=== PATIENT | female | born 1995 | race Caucasian/White ===

== ENCOUNTER 2016-10-28 15:32 | Emergency (ER) | payer OTHER ==
[2016-10-28 15:48] VITALS: BP 124/72
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
[2016-10-28 17:43] LABS: Hematocrit 43 % (35-47); Hemoglobin 14.4 g/dl (12.0-16.0); Mean Corpuscular HGB Conc 33 g/dl (31-36); Mean Corpuscular Hemoglobin 29 pg (27-31); Mean Corpuscular Volume 88 fL (80-97); Mean Platelet Volume 8 um3 (7.4-10.4); Red Blood Count 4.91 10^6/ul (4.0-5.4); Red Cell Distribution Width 13 % (10.5-15); White Blood Count 13.1 10^3/ul (3.5-10.8)
[2016-10-28 18:03] LABS: ALT 10 U/L (7-52); AST 14 U/L (13-39); Albumin 4.7 g/dL (3.2-5.2); Alkaline Phosphatase 45 U/L (34-104); Anion Gap 6 mmol/L (2-11); BUN/Creatinine Ratio 20.8 (8-20); Blood Urea Nitrogen 15 mg/dL (6-24); CO2 Carbon Dioxide 26 mmol/L (22-32); Calcium 9.7 mg/dL (8.6-10.3); Chloride 104 mmol/L (101-111); EGFR African American 132.8 (>60); EGFR Non-African American 103.3 (>60); Globulin 3.1 g/dL (2-4); Glucose 89 mg/dL (70-100); Potassium 3.7 mmol/L (3.5-5.0); Sodium 136 mmol/L (133-145); Total Protein 7.8 g/dL (6.4-8.9)
[2016-10-28] MEDS ORDERED: Iohexol 300* (CONTRAST) 10 ML SDV IV ONE (18:20)
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
== END 2016-10-28 19:27 | disposition home or self-care (01) ==
LOC: ED 15:32
DX: S00.93XA Contusion of unspecified part of head, initial encounter (principal); R51 Headache; M54.2 Cervicalgia; M25.551 Pain in right hip; S80.211A Abrasion, right knee, initial encounter; S70.211A Abrasion, right hip, initial encounter; V47.0XXA Car driver injured in collision with fixed or stationary object in nontraffic accident, initial encounter; Y93.9 Activity, unspecified; Y92.9 Unspecified place or not applicable
CPT/HCPCS: 36415; 70450; 71260; 72125; 74177; 80053; 84702; 85025; 85610; 99282; Q9967

== ENCOUNTER 2017-03-13 22:59 | Emergency (ER) | payer BC ==
[2017-03-13] MEDS ORDERED: Ondansetron ODT TAB* 4 MG PO ONE (23:50)
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
[2017-03-14 00:05] VITALS: BP 116/62
== END 2017-03-14 00:05 | disposition home or self-care (01) ==
LOC: ED 22:59
DX: S09.90XA Unspecified injury of head, initial encounter (principal); R51 Headache; W22.8XXA Striking against or struck by other objects, initial encounter; Y93.64 Activity, baseball; Y92.9 Unspecified place or not applicable; J45.909 Unspecified asthma, uncomplicated; Z88.2 Allergy status to sulfonamides
CPT/HCPCS: 99281; A9270-GY

== ENCOUNTER 2017-04-27 08:26 | Emergency (ER) | payer BC ==
[2017-04-27 10:45] LABS: Hematocrit 43 % (35-47); Hemoglobin 14.1 g/dl (12.0-16.0); Mean Corpuscular HGB Conc 33 g/dl (31-36); Mean Corpuscular Hemoglobin 30 pg (27-31); Mean Corpuscular Volume 90 fL (80-97); Mean Platelet Volume 8 um3 (7.4-10.4); Red Blood Count 4.76 10^6/ul (4.0-5.4); Red Cell Distribution Width 13 % (10.5-15); White Blood Count 8.9 10^3/ul (3.5-10.8)
[2017-04-27 10:54] LABS: Urine Bacteria Absent (Absent); Urine Bilirubin Negative (Negative); Urine Glucose Negative (Negative); Urine Nitrite Negative (Negative)
[2017-04-27 10:55] LABS: UR Preg Internal Control QC Line Present
[2017-04-27 10:57] LABS: BUN/Creatinine Ratio 16.2 (8-20); Calcium 9.4 mg/dL (8.6-10.3); EGFR African American 140.5 (>60); EGFR Non-African American 109.2 (>60); Potassium 3.9 mmol/L (3.5-5.0)
[2017-04-27 11:26] VITALS: BP 112/52
--- NOTE | 2017-04-30 14:26 | ED ---
Carol Villa Rebecca, scribed for Vitor Watkins MD on 04/27/17 at 1001 . Complex/Multi-Sys Presentation - HPI Summary HPI Summary: Pt is a 21 y/o F who presents to ED s/p 1 incident of near syncope last night with no complaints at this time. Pt reports last night she was stretching and noticed a "lump" on the R flank with no pain. After pushing on it last night she suddenly experienced visual and hearing changes, dizziness, lightheadedness characterized as near syncopal and diaphoresis. Visual and hearing changes resolved after 5-7 minutes with the lightheadedness, dizziness and diaphoresis resolved after 1 hour. Additionally notes tingling in the R hand when the lump is palpated. Sx aggravated by nothing, alleviated by spontaneous resolution. Denies abd pain, N/V. Reports a Hx of constipation and that her last BM was this morning and small. Confirms normal eating and drinking. No PMHx anemia. FHx anemia. LNMP 2 days ago. - History Of Current Complaint Chief Complaint: EDGeneral Time Seen by Provider: 04/27/17 09:44 Hx Obtained From: Patient Onset/Duration: Lasting Hours - 1 hour, Resolved Timing: Constant Severity Currently: None Aggravating Factor(s): Nothing Alleviating Factor(s): Spontaneous resolution Associated Signs And Symptoms: Positive: Dizziness. Negative: Nausea, Vomiting , Abdominal Pain - Allergies/Home Medications Allergies/Adverse Reactions: Allergies Allergy/AdvReac Type Severity Reaction Status Date / Time Sulfa Antibiotics Allergy Rash Verified 03/13/17 23:07 PMH/Surg Hx/FS Hx/Imm Hx Endocrine/Hematology History: Denies: Hx Diabetes Cardiovascular History: Denies: Hx Hypertension, Hx Pacemaker/ICD Respiratory History: Reports: Hx Asthma - No issues in awhile Sensory History: Denies: Hx Hearing Aid Psychiatric History: Denies: Hx Panic Disorder - Surgical History Surgery Procedure, Year, and Place: t&a, Appendectomy 12/30/13 - Immunization History Date of Tetanus Vaccine: Up to Date Infectious Disease History: No Infectious Disease History: Denies: History Other Infectious Disease, Traveled Outside the [place] in Last 30 Days - Family History Known Family History: Positive: Other - anemia Negative: Cardiac Disease - Social History Alcohol Use: None Substance Use Type: Reports: None Substance Use Comment - Amount & Last Used: 2 wks ago Smoking Status (MU): Never Smoked Tobacco Review of Systems Positive: Skin Diaphoresis - resolved. Negative: Fever, Chills Positive: Other - Visual changes - resolved. Negative: Erythema Positive: Other - Hearing changes - resolved. Negative: Sore Throat Negative: Chest Pain Negative: Shortness Of Breath, Cough Negative: Abdominal Pain, Vomiting, Nausea Negative: dysuria, hematuria Positive: Other - "lump" on the R flank Negative: Rash Neurological: Other - Dizziness and lightheadedness - resolved; R hand tingling when the lump is palpated Positive: Syncope - near syncopal - resolved All Other Systems Reviewed And Are Negative: Yes Physical Exam - Summary Physical Exam Summary: Constitutional: Well-developed, Well-nourished, Alert. (-) Distressed Skin: Warm, Dry HENT: Normocephalic; Atraumatic Eyes: Conjunctiva normal Neck: Musculoskeletal ROM normal neck. (-) JVD, (-) Stridor, (-) Tracheal deviation Cardio: Rhythm regular, rate normal, Heart sounds normal; Intact distal pulses; The pedal pulses are 2+ and symmetric. Radial pulses are 2+ and symmetric. (-) Murmur Pulmonary/Chest wall: Effort normal. (-) Respiratory distress, (-) Wheezes, (-) Rales Abd: Soft, (-) Tenderness, (-) Distension, (-) Guarding, (-) Rebound, (-) Palpable masses Musculoskeletal: (-) Edema, (-) Palpable masses Lymph: (-) Cervical adenopathy Neuro: Alert, Oriented x3 Psych: Mood and affect Normal Triage Information Reviewed: Yes Vital Signs On Initial Exam: Initial Vitals Temp Pulse Resp BP Pulse Ox 98.1 F 81 14 110/59 100 04/27/17 08:29 04/27/17 08:29 04/27/17 08:29 04/27/17 08:29 04/27/17 08:29 Vital Signs Reviewed: Yes Diagnostics - Vital Signs Vital Signs Temp Pulse Resp BP Pulse Ox 04/27/17 08:29 98.1 F 81 14 110/59 100 - Laboratory Result Diagrams: 04/27/17 10:24 04/27/17 10:24 Lab Statement: Any lab studies that have been ordered have been reviewed, and results considered in the medical decision making process. Re-Evaluation - Re-Evaluation First Eval Re-Evaluation Time: 11:17 Change: Unchanged Comment: Continues to be asymptomatic. Discussed D/C plan. Complex Multi-Symp Course/Dx Assessment/Plan: Pt is a 21 y/o F who presents to ED s/p 1 incident of near syncope last night with no complaints at this time. Pt reports last night she was stretching and noticed a "lump" on the R flank with no pain. After pushing on it last night she suddenly experienced visual and hearing changes, dizziness , lightheadedness characterized as near syncopal and diaphoresis. Visual and hearing changes resolved after 5-7 minutes with the lightheadedness, dizziness and diaphoresis resolved after 1 hour. Additionally notes tingling in the R hand when the lump is palpated. Sx alleviated by spontaneous resolution. Denies abd pain, N/V. Reports a Hx of constipation and that her last BM was this morning and small. Confirms normal eating and drinking. No PMHx anemia. FHx anemia. LNMP 2 days ago. UA reveals urine color: yellow, appearance: clear, specific gravity: 1.009, leukocyte esterase: 1+ and negative for blood, protein , bilirubin, ketones and nitrates. Urine negative. She will be D/C to home with Dx of near syncope and a follow up with her PCP. She understands and agrees. Patient medications reviewed this visit. - Diagnoses Differential Diagnoses/HQI/PQRI: Other - Vagal orthostatis hypotension, dehydration, anemia Provider Diagnoses: Near syncope Discharge - Discharge Plan Condition: Stable Disposition: HOME Patient Education Materials: Near Syncope (ED) Referrals: Gracia Gao MD [Primary Care Provider] - (Follow up with your primary care physician in 3-5 days. ) Additional Instructions: Will call with urine culture results if positive. RETURN TO THE EMERGENCY DEPARTMENT FOR CHANGING OR WORSENING SYMPTOMS The documentation as recorded by the Carol valdez Rebecca accurately reflects the service I personally performed and the decisions made by me, Vitor Watkins MD.
== END 2017-04-27 11:24 | disposition home or self-care (01) ==
LOC: ED 08:26
DX: R55 Syncope and collapse (principal); Z88.2 Allergy status to sulfonamides
CPT/HCPCS: 36415; 80048; 81003; 81015; 81025; 85027; 87086; 99281

== ENCOUNTER 2017-07-29 08:53 | Emergency (ER) | payer BC ==
[2017-07-29 09:09] VITALS: BP 114/71
--- NOTE | 2017-07-29 09:20 | UC ---
Throat Pain/Nasal Alexander HPI - HPI Summary HPI Summary: SINUS PAIN AND PRESSURE X 8 DAYS PND, COUGH , NASAL CONGESTION , NO FEVER, NO CHILLS - History of Current Complaint Chief Complaint: UCGeneralIllness Stated Complaint: sinuses Time Seen by Provider: 07/29/17 08:58 Hx Obtained From: Patient Hx Last Menstrual Period: 07/18/17 Onset/Duration: Gradual Onset, Lasting Days - 8, Still Present Severity: Moderate Cough: Nonproductive Associated Signs & Symptoms: Positive: Wheezing, Sinus Discomfort, Nasal Discharge. Negative: Hoarseness, Fever - Allergies/Home Medications Allergies/Adverse Reactions: Allergies Allergy/AdvReac Type Severity Reaction Status Date / Time Sulfa Antibiotics Allergy Rash Verified 07/29/17 09:09 Home Medications: Home Medications [id number] [Nyquil Severe Cold/Flu 5-6.25-10-325 mg/15Ml] 30 ml PO DAILY PRN 07/29/17 [History Confirmed 07/29/17] PMH/Surg Hx/FS Hx/Imm Hx Respiratory History: Asthma - Surgical History Surgical History: Yes Surgery Procedure, Year, and Place: t&a, Appendectomy 12/30/13 - Family History Known Family History: Positive: None, Other - anemia Negative: Cardiac Disease - Social History Alcohol Use: Occasionally Substance Use Type: Marijuana Substance Use Comment - Amount & Last Used: 2 wks ago Smoking Status (MU): Never Smoked Tobacco Household Exposure Type: Cigarettes - Immunization History Most Recent Influenza Vaccination: none Most Recent Tetanus Shot: UTD Most Recent Pneumonia Vaccination: none Vaccination Up to Date: Yes Review of Systems Constitutional: Negative Skin: Negative Eyes: Negative ENT: Nasal Discharge, Sinus Congestion, Sinus Pain/Tenderness Respiratory: Cough Cardiovascular: Negative Gastrointestinal: Negative Is Patient Immunocompromised?: No All Other Systems Reviewed And Are Negative: Yes Physical Exam Triage Information Reviewed: Yes Appearance: Well-Appearing, No Pain Distress, Well-Nourished Vital Signs: Initial Vital Signs Temp 97.9 F 07/29/17 09:03 Pulse 75 07/29/17 09:03 Resp 16 07/29/17 09:03 BP 114/71 07/29/17 09:03 Pulse Ox 100 07/29/17 09:03 Vital Signs Reviewed: Yes Eyes: Positive: Conjunctiva Clear ENT: Positive: Normal ENT inspection, Hearing grossly normal, Pharyngeal erythema, Nasal congestion, Nasal drainage, TMs normal, Sinus tenderness Neck exam: Normal Neck: Positive: Supple, Nontender, No Lymphadenopathy Respiratory: Positive: Chest non-tender, Lungs clear, Normal breath sounds Cardiovascular: Positive: RRR, No Murmur, Pulses Normal, Brisk Capillary Refill Throat Pain/Nasal Course/Dx - Differential Dx/Diagnosis Provider Diagnoses: SINUSITIS Discharge - Discharge Plan Condition: Stable Disposition: HOME Prescriptions: Albuterol HFA INHALER* [Ventolin HFA Inhaler*] 1 - 2 puff INH Q6H PRN #1 mdi PRN Reason: Wheezing Amoxicillin/Clavulanate TAB* [Augmentin TAB 875*] 875 mg PO BID #20 tab Patient Education Materials: Sinusitis (ED) Referrals: Gracia Gao MD [Primary Care Provider] - If Needed
== END 2017-07-29 09:23 | disposition home or self-care (01) ==
LOC: UCCORT 08:53
DX: J32.9 Chronic sinusitis, unspecified (principal); Z88.2 Allergy status to sulfonamides
CPT/HCPCS: 99212; G0463

== ENCOUNTER 2017-09-02 13:53 | Emergency (ER) | payer BC ==
[2017-09-02] MEDS ORDERED: NS 0.9% 1000 ML* 1,000 ML IV ONE (14:40)
[2017-09-02] MEDS ORDERED: Ondansetron INJ* 2 MG/ML VIAL IV ONE (14:40)
[2017-09-02] MEDS ORDERED: Ketorolac INJ* 30 MG/ML 1 ML VIAL IV PUSH ONE (14:41)
[2017-09-02 15:07] LABS: Hematocrit 42 % (35-47); Hemoglobin 14.2 g/dl (12.0-16.0); Mean Corpuscular HGB Conc 34 g/dl (31-36); Mean Corpuscular Hemoglobin 30 pg (27-31); Mean Corpuscular Volume 87 fL (80-97); Mean Platelet Volume 8 um3 (7.4-10.4); Red Blood Count 4.75 10^6/ul (4.0-5.4); Red Cell Distribution Width 13 % (10.5-15); White Blood Count 17.8 10^3/ul (3.5-10.8)
[2017-09-02 15:26] LABS: ALT 8 U/L (7-52); AST 13 U/L (13-39); Albumin 4.7 g/dL (3.2-5.2); Alkaline Phosphatase 48 U/L (34-104); Anion Gap 9 mmol/L (2-11); BUN/Creatinine Ratio 11.3 (8-20); Blood Urea Nitrogen 8 mg/dL (6-24); CO2 Carbon Dioxide 25 mmol/L (22-32); Calcium 9.6 mg/dL (8.6-10.3); Chloride 104 mmol/L (101-111); EGFR African American 133.6 (>60); EGFR Non-African American 103.9 (>60); Globulin 3.1 g/dL (2-4); Glucose 106 mg/dL (70-100); Lipase 24 U/L (11.0-82.0); Potassium 3.5 mmol/L (3.5-5.0); Sodium 138 mmol/L (133-145); Total Protein 7.8 g/dL (6.4-8.9)
[2017-09-02 17:21] LABS: Urine Bacteria Absent (Absent); Urine Bilirubin Negative (Negative); Urine Glucose Negative (Negative); Urine Nitrite Negative (Negative)
--- NOTE | 2017-09-02 18:24 | RAD ---
Indication: Right flank pain. CT of the abdomen and pelvis was performed without oral or IV contrast administration. Coronal and sagittal reconstructed images were obtained. The lung bases demonstrate no pleural fluid, nodules or masses. Heart is of normal size without evidence of pericardial effusion. The liver is normal in size. No focal lesions or intrahepatic ductal dilatation. The gallbladder demonstrates no calcified gallstones. No pericholecystic fluid or wall thickening is noted. The spleen demonstrates calcified granuloma. No adrenal masses are noted. There is right hydronephrosis noted. There is a calculus in the proximal right ureter at approximately L2-L3 level measuring approximately 4 mm is noted. The left kidney shows no hydronephrosis. Nonobstructing calculi are noted in the lower pole of both kidneys. No retroperitoneal lymphadenopathy is noted. No dilated loops of bowel are noted. CT of the pelvis demonstrates intrauterine device in place. There is a right ovarian cyst with a calcification measuring up to 4.2 cm. Left ovary is grossly unremarkable. No free fluid is identified. IMPRESSION: RIGHT OVARIAN CYST MEASURING UP TO 4 CM. FREE FLUID IS NOTED IN THE PELVIS. 4 MM CALCULI IS NOTED IN THE PROXIMAL RIGHT URETER AT THE L2-L3 LEVEL WITH MODERATE RIGHT HYDRONEPHROSIS.
[2017-09-02] MEDS ORDERED: Ondansetron ODT TAB* 4 MG PO ONE (19:27)
[2017-09-02 20:16] VITALS: BP 119/68
--- NOTE | 2017-09-02 22:09 | ED ---
Latrell Villa Gabriel, scribed for Katiana Coates MD on 09/02/17 at 1440 . Abdominal Pain/Female - HPI Summary HPI Summary: This patient is a 21 year old F presenting to [facility] accompanied by mother with a chief complaint of RLQ pain since 1130 today. The patient rates the pain 7/10 in severity and radiating into her flank. Patient reports vomiting. Patient denies vaginal discharge, MESSINA, double vision, SOB, dysuria, hematuria, and ear pain. Patient is sexual active with an IUD and no history of STDs. She also has a history of ovarian cysts. - History of Current Complaint Chief Complaint: EDAbdPain Stated Complaint: RIGHT ABD PAIN,VOMITING Time Seen by Provider: 09/02/17 14:24 Hx Obtained From: Patient Onset/Duration: Sudden Onset, Lasting Hours - 4, Still Present Timing: Constant Severity Initially: Moderate Severity Currently: Moderate Pain Intensity: 7 Pain Scale Used: 0-10 Numeric Location: Diffuse Radiates: Yes Radiates to: Flank - right Associated Signs and Symptoms: Positive: Negative - vaginal discharge, MESSINA, double vision, SOB, dysuria, hematuria, and ear pain., Vomiting Allergies/Adverse Reactions: Allergies Allergy/AdvReac Type Severity Reaction Status Date / Time Sulfa Antibiotics Allergy Rash Verified 09/02/17 14:09 PMH/Surg Hx/FS Hx/Imm Hx Previously Healthy: No Endocrine/Hematology History: Denies: Hx Diabetes Cardiovascular History: Denies: Hx Hypertension, Hx Pacemaker/ICD Respiratory History: Reports: Hx Asthma - No issues in awhile History: Reports: Other Problems/Disorders - ovarian cysts Sensory History: Denies: Hx Hearing Aid Psychiatric History: Denies: Hx Panic Disorder - Surgical History Surgery Procedure, Year, and Place: t&a, Appendectomy 12/30/13. Tonsillectomy - Immunization History Date of Tetanus Vaccine: Up to Date Infectious Disease History: Yes Infectious Disease History: Denies: History Other Infectious Disease, Traveled Outside the [place] in Last 30 Days - Family History Known Family History: Positive: Other - anemia Negative: Cardiac Disease - Social History Alcohol Use: Occasionally Substance Use Type: Reports: Marijuana Substance Use Comment - Amount & Last Used: 2 wks ago Smoking Status (MU): Never Smoked Tobacco Review of Systems Positive: Other - double vision Negative: Ear Ache Negative: Shortness Of Breath Positive: Abdominal Pain, Vomiting Negative: dysuria, discharge, hematuria Negative: Headache All Other Systems Reviewed And Are Negative: No Physical Exam - Summary Physical Exam Summary: Appearance: Alert, conversive, nontoxic appearing. Appears slightly anxious Skin: Warm, dry, no mottling, no rashes, no contusions HEENT: EOMI, PERRL, moist mucous membranes Neck: No masses on the neck, supple Respiratory: Clear to auscultation, breath sounds present, no rales, no rhonchi , no wheezes Cardiovascular: RRR, pulses are symmetrical in both lower and upper extremities Abdomen: Soft, TTP in RLQ and right flank Bowel Sounds: Present Musculoskeletal: No CVA tenderness, no obvious deformity, moving all extremities in a grossly normal manner Neurological: A&Ox3, CN II-XII Intact, moving all extremities symmetrically Psychiatric: Normal affect and mood Triage Information Reviewed: Yes Vital Signs On Initial Exam: Initial Vitals Temp Pulse Resp BP Pulse Ox 98.4 F 88 16 124/64 98 09/02/17 14:09 09/02/17 14:09 09/02/17 14:09 09/02/17 14:09 09/02/17 14:09 Vital Signs Reviewed: Yes - [place] Coma Scale Coma Scale Total: 15 Diagnostics - Vital Signs Vital Signs Temp Pulse Resp BP Pulse Ox 09/02/17 14:09 98.4 F 88 16 124/64 98 - Laboratory Lab Results: Lab Results 09/02/17 09/02/17 09/02/17 Range/Units 14:55 14:55 14:55 WBC 17.8 H (3.5-10.8) 10^3/ul RBC 4.75 (4.0-5.4) 10^6/ul Hgb 14.2 (12.0-16.0) g/dl Hct 42 (35-47) % MCV 87 (80-97) fL MCH 30 (27-31) pg MCHC 34 (31-36) g/dl RDW 13 (10.5-15) % Plt Count 346 (150-450) 10^3/ul MPV 8 (7.4-10.4) um3 Neut % (Auto) 84.6 H (38-83) % Lymph % (Auto) 9.3 L (25-47) % Butts % (Auto) 5.5 (1-9) % Eos % (Auto) 0.2 (0-6) % Baso % (Auto) 0.4 (0-2) % Absolute Neuts (auto) 15.0 H (1.5-7.7) 10^3/ul Absolute Lymphs (auto) 1.6 (1.0-4.8) 10^3/ul Absolute Monos (auto) 1.0 H (0-0.8) 10^3/ul Absolute Eos (auto) 0 (0-0.6) 10^3/ul Absolute Basos (auto) 0.1 (0-0.2) 10^3/ul Absolute Nucleated RBC 0 10^3/ul Nucleated RBC % 0 Sodium 138 (133-145) mmol/L Potassium 3.5 (3.5-5.0) mmol/L Chloride 104 (101-111) mmol/L Carbon Dioxide 25 (22-32) mmol/L Anion Gap 9 (2-11) mmol/L BUN 8 (6-24) mg/dL Creatinine 0.71 (0.51-0.95) mg/dL Est GFR ( Amer) 133.6 (>60) Est GFR (Non-Af Amer) 103.9 (>60) BUN/Creatinine Ratio 11.3 (8-20) Glucose 106 H (70-100) mg/dL Lactic Acid 1.2 (0.5-2.0) mmol/L Calcium 9.6 (8.6-10.3) mg/dL Total Bilirubin 0.60 (0.2-1.0) mg/dL AST 13 (13-39) U/L ALT 8 (7-52) U/L Alkaline Phosphatase 48 (34-104) U/L Total Protein 7.8 (6.4-8.9) g/dL Albumin 4.7 (3.2-5.2) g/dL Globulin 3.1 (2-4) g/dL Albumin/Globulin Ratio 1.5 (1-3) Lipase 24 (11.0-82.0) U/L Beta HCG, Quant < 0.60 mIU/mL Urine Color Urine Appearance Urine pH (5-9) Ur Specific [place] (1.010-1.030) Urine Protein (Negative) Urine Ketones (Negative) Urine Blood (Negative) Urine Nitrate (Negative) Urine Bilirubin (Negative) Urine Urobilinogen (Negative) Ur Leukocyte Esterase (Negative) Urine WBC (Auto) (Absent) Urine RBC (Auto) (Absent) Ur Squamous Epith Cells (Absent) Amorphous Crystals (Absent) Urine Bacteria (Absent) Urine Glucose (Negative) 09/02/17 Range/Units 16:45 WBC (3.5-10.8) 10^3/ul RBC (4.0-5.4) 10^6/ul Hgb (12.0-16.0) g/dl Hct (35-47) % MCV (80-97) fL MCH (27-31) pg MCHC (31-36) g/dl RDW (10.5-15) % Plt Count (150-450) 10^3/ul MPV (7.4-10.4) um3 Neut % (Auto) (38-83) % Lymph % (Auto) (25-47) % Butts % (Auto) (1-9) % Eos % (Auto) (0-6) % Baso % (Auto) (0-2) % Absolute Neuts (auto) (1.5-7.7) 10^3/ul Absolute Lymphs (auto) (1.0-4.8) 10^3/ul Absolute Monos (auto) (0-0.8) 10^3/ul Absolute Eos (auto) (0-0.6) 10^3/ul Absolute Basos (auto) (0-0.2) 10^3/ul Absolute Nucleated RBC 10^3/ul Nucleated RBC % Sodium (133-145) mmol/L Potassium (3.5-5.0) mmol/L Chloride (101-111) mmol/L Carbon Dioxide (22-32) mmol/L Anion Gap (2-11) mmol/L BUN (6-24) mg/dL Creatinine (0.51-0.95) mg/dL Est GFR ( Amer) (>60) Est GFR (Non-Af Amer) (>60) BUN/Creatinine Ratio (8-20) Glucose (70-100) mg/dL Lactic Acid (0.5-2.0) mmol/L Calcium (8.6-10.3) mg/dL Total Bilirubin (0.2-1.0) mg/dL AST (13-39) U/L ALT (7-52) U/L Alkaline Phosphatase (34-104) U/L Total Protein (6.4-8.9) g/dL Albumin (3.2-5.2) g/dL Globulin (2-4) g/dL Albumin/Globulin Ratio (1-3) Lipase (11.0-82.0) U/L Beta HCG, Quant mIU/mL Urine Color Yellow Urine Appearance Cloudy Urine pH 7.0 (5-9) Ur Specific [place] 1.017 (1.010-1.030) Urine Protein Negative (Negative) Urine Ketones 1+ H (Negative) Urine Blood 3+ H (Negative) Urine Nitrate Negative (Negative) Urine Bilirubin Negative (Negative) Urine Urobilinogen Negative (Negative) Ur Leukocyte Esterase Negative (Negative) Urine WBC (Auto) Trace(0-5/hpf) (Absent) Urine RBC (Auto) 3+(>10/hpf) H (Absent) Ur Squamous Epith Cells Present H (Absent) Amorphous Crystals Present H (Absent) Urine Bacteria Absent (Absent) Urine Glucose Negative (Negative) Result Diagrams: 09/02/17 14:55 09/02/17 14:55 Lab Statement: Any lab studies that have been ordered have been reviewed, and results considered in the medical decision making process. - CT ABD/Pelvis CT CT Interpretation Completed By: Radiologist - RIGHT OVARIAN CYST MEASURING UP TO 4 CM. FREE FLUID IS NOTED IN THE PELVIS. 4 MM CALCULI IS NOTED IN THE PROXIMAL RIGHT URETER AT THE L2-L3 LEVEL WITH MODERATE RIGHT HYDRONEPHROSIS. ED physician has reviewed this radiology report and agrees. Abdominal Pain Fem Course/Dx - Course Course Of Treatment: This patient is a 21 year old F presenting to [facility] accompanied by mother with a chief complaint of RLQ pain since 1130 today. The patient rates the pain 7/10 in severity and radiating into her flank. CT ABD/ Pelvis reveals, per radiologist, RIGHT OVARIAN CYST MEASURING UP TO 4 CM. FREE FLUID IS NOTED IN THE PELVIS. 4 MM CALCULI IS NOTED IN THE PROXIMAL RIGHT URETER AT THE L2-L3 LEVEL WITH MODERATE RIGHT. HYDRONEPHROSIS. Test results with no significant abnormalities. Patients UA was negative for UTI. In the ED course the patient was given IV fluids, Toradol for pain, and Zofran for nausea. Patient will be discharged with prescription for ondansetron and follow up from urology. The patient is agreeable with this plan. - Diagnoses Provider Diagnoses: Kidney stone, Ovarian cyst Discharge - Discharge Plan Condition: Stable Disposition: HOME Prescriptions: Ondansetron ODT TAB* [Zofran 4 MG Odt TAB*] 4 mg PO Q8H PRN #20 tab.odt PRN Reason: nausea Patient Education Materials: Ovarian Cyst (ED), Kidney Stones (ED) Forms: *Work Release Referrals: Indu Schneider MD [Primary Care Provider] - Jesus Lorenzo MD [Medical Doctor] - Additional Instructions: Follow up with your primary care physician. Follow up with your propagator laborer regarding your ovarian cyst. I have given you a referral to urology for your kidney stone. you have a 50% chance of passing your kidney stone. Drink plenty of water. take tylenol and motrin for pain. return if worse or any new symptoms. The documentation as recorded by the Latrell valdez Gabriel accurately reflects the service I personally performed and the decisions made by me, Katiana Coates MD.
== END 2017-09-02 20:14 | disposition home or self-care (01) ==
LOC: ED 13:53
DX: N20.0 Calculus of kidney (principal); R11.10 Vomiting, unspecified; R10.31 Right lower quadrant pain; N83.209 Unspecified ovarian cyst, unspecified side
CPT/HCPCS: 36415; 74176; 80053; 81003; 81015; 83605; 83690; 84702; 85025; 96374; 96375; 99284; A9270-GY; J1885; J2405

== ENCOUNTER 2017-11-08 14:14 | Emergency (ER) | payer BC ==
--- OUTSIDE RECORDS SUMMARY | 2017-11-08 17:52 | XMS REPORT ---
:1995 Author Name sound, ultra Care Team Providers Name Role Phone sound, ultra Unavailable Unavailable PROBLEMS ALLERGIES No Information ENCOUNTERS IMMUNIZATIONS No Known Immunizations SOCIAL HISTORY No smoking Hx information available REASON FOR REFERRAL FUNCTIONAL STATUS PLAN OF CARE VITAL SIGNS MEDICATIONS Unknown Medications PROCEDURES RESULTS REASON FOR VISIT MEDICAL (GENERAL) HISTORY
--- OUTSIDE RECORDS SUMMARY | 2017-11-08 17:52 | XMS REPORT ---
:[address] [facility] Address [address] [place] [address] Care Team Providers Name Role Phone Bette Amaya Unavailable Unavailable PROBLEMS Type Condition ICD9-CM [id number] Onset Condition SNOMED Code Code Code Dates Status Problem Pelvic and R10.2 Active 934162412 perineal pain Problem Family history of Z80.3 Active 917485541 malignant neoplasm of breast Problem Unspecified N83.201 Active 80366932605354132 ovarian cyst, right side Problem Dysmenorrhea, N94.6 Active 936458791 unspecified Problem Hydronephrosis N13.2 Active 983523545 with renal and ureteral calculous obstruction ALLERGIES Substance Reaction Event Type Date Status Sulfa rash Drug Allergy Sep, Active ENCOUNTERS Encounter Location Date Diagnosis [facility] [address] Dec, OBGYN [place], [place] [id number] [facility] [address] Sep, [place]BG[place] [id number] [facility] Sep, Pelvic and perineal pain OBGYN [facility], R10.2 ; Hydronephrosis [place] [id number] with renal and ureteral calculous obstruction N13.2 ; Unspecified ovarian cyst, right side N83.201 and Other specified nonscarring hair loss L65.8 [facility] Sep, Unspecified ovarian cyst, OBGYN [facility], right side N83.201 and [place] [id number] Encounter for routine checking of intrauterine contraceptive device Z30.431 [facility] [address] Aug, OBGYN [place], [place] [id number] [facility] 103 Aug, Pelvic and perineal pain OBGYN [facility], R10.2 ; Other specified [place] [id number] disorders of white blood cells D72.89 ; Hydronephrosis with renal and ureteral calculous obstruction N13.2 and Unspecified ovarian cyst, right side N83.201 [facility] 103 Aug, Unspecified ovarian cyst, OBGYN [facility], right side N83.201 ; [place] [id number] Pelvic and perineal pain R10.2 and Encounter for routine checking of intrauterine contraceptive device Z30.431 [facility] 103 Aug, Pelvic and perineal pain OBGYN [facility], R10.2 ; Other specified [place] [id number] disorders of white blood cells D72.89 ; Family history of malignant neoplasm of breast Z80.3 ; Dysmenorrhea, unspecified N94.6 ; Urgency of urination R39.15 ; Hydronephrosis with renal and ureteral calculous obstruction N13.2 and Unspecified ovarian cyst, right side N83.201 [facility] [address] Aug, OBGYN [place], [place] [id number] IMMUNIZATIONS No Known Immunizations SOCIAL HISTORY Never Assessed REASON FOR REFERRAL FUNCTIONAL STATUS PLAN OF CARE Activity Details Follow Up annual, will check coverage of Mirena & contact pt Reason: Pending Test T4 FREE Pending Test TSH VITAL SIGNS Height 63 in 2017-10-26 Weight 108 lbs 2017-10-26 BMI 19.13 kg/m2 2017-10-26 Blood pressure systolic 110 mm Hg 2017-10-26 Blood pressure diastolic 70 mm Hg 2017-10-26 MEDICATIONS Medication Instructions Dosage Frequency Start End Date Duration Status Date Paragard Active 68.7mg Copper Albuterol As directed PRN As directed Active inhaler PROCEDURES Procedure Date Ordered Result Body Site VENIPUNCT, ROUTINE* Oct 26, 2017 RESULTS No Results REASON FOR VISIT F/u US MEDICAL (GENERAL) HISTORY Type Description Date Medical History Asthma Surgical History tonsillectomy 2008 Surgical History appendectomy 2012
--- OUTSIDE RECORDS SUMMARY | 2017-11-08 17:52 | XMS REPORT ---
:1995 Author Organization [facility] Address [address] [place] [address] Care Team Providers Name Role Phone Bette Amaya Unavailable Unavailable PROBLEMS Type Condition ICD9-CM [id number] Onset Condition SNOMED Code Code Code Dates Status Problem Pelvic and R10.2 Active 820209930 perineal pain Problem Family history of Z80.3 Active 061188366 malignant neoplasm of breast Problem Unspecified N83.201 Active 39447771498422115 ovarian cyst, right side Problem Dysmenorrhea, N94.6 Active 619468203 unspecified Problem Hydronephrosis N13.2 Active 334567600 with renal and ureteral calculous obstruction ALLERGIES No Information ENCOUNTERS Encounter Location Date Diagnosis [facility] [address] Dec, [place]BGYN [place], [place] [id number] [facility] [address] Sep, [place]YN [place], [place] [id number] [facility] 103 Sep, Pelvic and perineal pain OBGYN [facility], R10.2 ; Hydronephrosis [place] [id number] with renal and ureteral calculous obstruction N13.2 ; Unspecified ovarian cyst, right side N83.201 and Other specified nonscarring hair loss L65.8 [facility] 103 Sep, Unspecified ovarian cyst, OBGYN [facility], right side N83.201 and [place] [id number] Encounter for routine checking of intrauterine contraceptive device Z30.431 [facility] [address] Aug, OBGYN [place] [id number] [facility] 103 Aug, Pelvic and perineal pain OBGYN [facility], R10.2 ; Other specified [place] [id number] disorders of white blood cells D72.89 ; Hydronephrosis with renal and ureteral calculous obstruction N13.2 and Unspecified ovarian cyst, right side N83.201 [facility] 103 Aug, Unspecified ovarian cyst, OBGYN [facility], right side N83.201 ; [place] [id number] Pelvic and perineal pain R10.2 and Encounter for routine checking of intrauterine contraceptive device Z30.431 [facility] 103 Aug, Pelvic and perineal pain OBGYN [facility], R10.2 ; Other specified [place] [id number] disorders of white blood cells D72.89 ; Family history of malignant neoplasm of breast Z80.3 ; Dysmenorrhea, unspecified N94.6 ; Urgency of urination R39.15 ; Hydronephrosis with renal and ureteral calculous obstruction N13.2 and Unspecified ovarian cyst, right side N83.201 [facility] [address] Aug, OBGYN [place], [place] [id number] IMMUNIZATIONS No Known Immunizations SOCIAL HISTORY Never Assessed REASON FOR REFERRAL FUNCTIONAL STATUS PLAN OF CARE VITAL SIGNS MEDICATIONS Unknown Medications PROCEDURES No Known procedures RESULTS No Results REASON FOR VISIT [facility] MEDICAL (GENERAL) HISTORY Type Description Date Medical History Asthma Surgical History tonsillectomy 2008 Surgical History appendectomy 2013
== END 2017-11-08 18:15 | disposition left against medical advice (07) ==
LOC: UCCORT 14:14
DX: R68.89 Other general symptoms and signs (principal); Z53.21 Procedure and treatment not carried out due to patient leaving prior to being seen by health care provider

== ENCOUNTER 2017-11-10 14:08 | Emergency (ER) | payer BC ==
--- NOTE | 2017-11-10 14:36 | ED ---
Influenza-Like Illness - History of Current Complaint Chief Complaint: EDFluSymptoms Time Seen by Provider: 11/10/17 14:36 - Allergy/Home Medications Allergies/Adverse Reactions: Allergies Allergy/AdvReac Type Severity Reaction Status Date / Time MS Sulfa Antibiotics Allergy Rash Verified 11/10/17 14:30 [Sulfa Antibiotics] PMH/Surg Hx/FS Hx/Imm Hx Endocrine/Hematology History: Denies: Hx Diabetes Cardiovascular History: Denies: Hx Hypertension, Hx Pacemaker/ICD Respiratory History: Reports: Hx Asthma - No issues in awhile History: Reports: Other Problems/Disorders - ovarian cysts Sensory History: Denies: Hx Hearing Aid Psychiatric History: Denies: Hx Panic Disorder - Surgical History Surgery Procedure, Year, and Place: t&a, Appendectomy 12/30/13. Tonsillectomy - Immunization History Date of Tetanus Vaccine: Up to Date Infectious Disease History: No Infectious Disease History: Denies: History Other Infectious Disease, Traveled Outside the [place] in Last 30 Days - Family History Known Family History: Positive: None, Other - anemia Negative: Cardiac Disease - Social History Alcohol Use: Occasionally Substance Use Type: Reports: Marijuana Substance Use Comment - Amount & Last Used: 2 wks ago Smoking Status (MU): Never Smoked Tobacco Physical Exam Vital Signs On Initial Exam: Initial Vitals Temp Pulse Resp BP Pulse Ox 98.3 F 100 20 131/57 99 11/10/17 14:27 11/10/17 14:27 11/10/17 14:27 11/10/17 14:27 11/10/17 14:27 Diagnostics - Vital Signs Vital Signs Temp Pulse Resp BP Pulse Ox 11/10/17 14:27 98.3 F 100 20 131/57 99 - Laboratory Lab Statement: Any lab studies that have been ordered have been reviewed, and results considered in the medical decision making process. Discharge - Discharge Plan Referrals: Indu Schneider MD [Primary Care Provider] -
[2017-11-10] MEDS: Ketorolac INJ* 30 MG/ML 1 ML VIAL IM ONE (16:28)
[2017-11-10 18:27] VITALS: BP 114/65
--- NOTE | 2017-11-11 16:55 | ED ---
Parmjit Villa Angela, scribed for Randy Stewart MD on 11/10/17 at 1610 . Influenza-Like Illness - HPI Summary HPI Summary: This pt is a 22 y/o female [facility] enlarged right sided gland today. Pt reports she went to [facility] 2 days ago and was diagnosed with influenza. She was started on Tamiflu and she began taking them then. Pt states that today she woke up feeling worse. She notes she feels her right gland swollen and swelling underneath her tongue on the right side. - History of Current Complaint Chief Complaint: EDFluSymptoms Time Seen by Provider: 11/10/17 14:36 Hx Obtained From: Patient Onset/Duration: Lasting Days, Still Present Severity: Moderate Associated Signs & Symptoms: F/C, Myalgia, Sore Throat Related Hx: Possible Flu/Infectious Exposure - Pt was diagnosed with the flu 2 days ago - Allergy/Home Medications Allergies/Adverse Reactions: Allergies Allergy/AdvReac Type Severity Reaction Status Date / Time MS Sulfa Antibiotics Allergy Rash Verified 11/10/17 14:30 [Sulfa Antibiotics] PMH/Surg Hx/FS Hx/Imm Hx Endocrine/Hematology History: Denies: Hx Diabetes Cardiovascular History: Denies: Hx Hypertension, Hx Pacemaker/ICD Respiratory History: Reports: Hx Asthma - No issues in awhile History: Reports: Other Problems/Disorders - ovarian cysts Sensory History: Denies: Hx Hearing Aid Psychiatric History: Denies: Hx Panic Disorder - Surgical History Surgery Procedure, Year, and Place: t&a, Appendectomy 12/30/13. Tonsillectomy - Immunization History Date of Tetanus Vaccine: Up to Date Infectious Disease History: No Infectious Disease History: Denies: History Other Infectious Disease, Traveled Outside the [place] in Last 30 Days - Family History Known Family History: Positive: Other - anemia Negative: Cardiac Disease - Social History Alcohol Use: Occasionally Substance Use Type: Reports: Marijuana Substance Use Comment - Amount & Last Used: 2 wks ago Smoking Status (MU): Never Smoked Tobacco Review of Systems Negative: Fever, Chills ENT: Other - right sided swollen gland, swelling under her tongue Genitourinary: Negative Musculoskeletal: Negative Skin: Negative All Other Systems Reviewed And Are Negative: Yes Physical Exam - Summary Physical Exam Summary: VITAL SIGNS: Reviewed. GENERAL: Patient is a well-developed and nourished female who is lying comfortable in the stretcher. Patient is not in any acute respiratory distress. HEAD AND FACE: No signs of trauma. No ecchymosis, hematomas or skull depressions. No sinus tenderness. EYES: PERRLA, EOMI x 2, No injected conjunctiva, no nystagmus. EARS: Hearing grossly intact. Ear canals and tympanic membranes are within normal limits. MOUTH: Oropharynx within normal limits. NECK: Supple, trachea is midline, no JVD, no carotid bruit, no c-spine tenderness, neck with full ROM. Reactive lymphadenopathy on the right side of the neck. CHEST: Symmetric, no tenderness at palpation LUNGS: Clear to auscultation bilaterally. No wheezing or crackles. CVS: Regular rate and rhythm, S1 and S2 present, no murmurs or gallops appreciated. ABDOMEN: Soft, non-tender. No signs of distention. No rebound no guarding, and no masses palpated. Bowel sounds are normal. EXTREMITIES: FROM in all major joints, no edema, no cyanosis or clubbing. NEURO: Alert and oriented x 3. No acute neurological deficits. Speech is normal and follows commands. SKIN: Dry and warm Triage Information Reviewed: Yes Vital Signs On Initial Exam: Initial Vitals Temp Pulse Resp BP Pulse Ox 98.3 F 100 20 131/57 99 11/10/17 14:27 11/10/17 14:27 11/10/17 14:27 11/10/17 14:27 11/10/17 14:27 Vital Signs Reviewed: Yes Diagnostics - Vital Signs Vital Signs Temp Pulse Resp BP Pulse Ox 11/10/17 14:27 98.3 F 100 20 131/57 99 - Laboratory Lab Statement: Any lab studies that have been ordered have been reviewed, and results considered in the medical decision making process. Flu Symptom Course/Dx - Course Assessment/Plan: This pt is a 22 y/o female presenting to [facility] c/o enlarged right sided gland today. Pt reports she went to [facility] 2 days ago and was diagnosed with influenza. She was started on Tamiflu and she began taking them then. Pt states that today she woke up feeling worse. She notes she feels her right gland swollen and swelling underneath her tongue on the right side. Monoscreen is negative. Rapid strep test is negative. Pt has reactive lymphadenopathy and therefore she will be placed on azithromycin. Pt is hemodynamically stable, alert and oriented x3. She is able to swallow and has no airway obstruction. Pt is instructed to return to the ED for any worsening symptoms. Pt will be discharged to home with follow up from her PCP. - Diagnoses Provider Diagnoses: Pharyngitis Discharge - Discharge Plan Condition: Stable Disposition: HOME Prescriptions: Azithromyxin NITIN (NF) [Z-Nitin (Zithromax) 250 mg tabs #6] 2 tab PO .TODAY, THEN 1 DAILY #6 tab Patient Education Materials: Pharyngitis (ED) Referrals: Indu Schneider MD [Primary Care Provider] - 3 Days Additional Instructions: Please follow up with your primary care provider. RETURN TO THE ED FOR ANY WORSENING SYMPTOMS. The documentation as recorded by the Parmjit valdez Angela accurately reflects the service I personally performed and the decisions made by , Randy Stewart MD.
== END 2017-11-10 18:27 | disposition home or self-care (01) ==
LOC: ED 14:08
DX: J02.9 Acute pharyngitis, unspecified (principal); R59.1 Generalized enlarged lymph nodes; J11.1 Influenza due to unidentified influenza virus with other respiratory manifestations; Z88.2 Allergy status to sulfonamides
CPT/HCPCS: 36415; 86308; 87651; 96372; 99282; J1885

== ENCOUNTER 2018-07-12 09:57 | Emergency (ER) | payer BC, MEDICAID ==
[2018-07-12 10:49] VITALS: BP 134/82
--- NOTE | 2018-07-12 12:04 | UC ---
Lower Extremity/Ankle HPI - HPI Summary HPI Summary: Pt reports to reporting disocomfort in b/l lateral aspect of hips. Pt states initially right sidem but now both. no parthesia. No leg weakenss. no bowel/ bladder changes. Pt states sx improve with motrin. 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 Pt denies trauma. 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 no current sports Pt's medications reviewed this visit - History of Current Complaint Chief Complaint: UCLowerExtremity Stated Complaint: BILATERAL HIP PAIN Time Seen by Provider: 07/12/18 11:12 Hx Obtained From: Patient Hx Last Menstrual Period: 07/11/18 ?: No Onset/Duration: Gradual Onset Pain Intensity: 6 - Allergies/Home Medications Allergies/Adverse Reactions: Allergies Allergy/AdvReac Type Severity Reaction Status Date / Time amoxicillin Allergy Rash Verified 07/12/18 10:50 Sulfa (Sulfonamide Allergy Rash Verified 07/12/18 10:50 Antibiotics) PMH/Surg Hx/FS Hx/Imm Hx Previously Healthy: Yes - Surgical History Surgical History: Yes Surgery Procedure, Year, and Place: t&a, Appendectomy 12/30/13. Tonsillectomy - Family History Known Family History: Positive: Other - anemia Negative: Cardiac Disease - Social History Occupation: Employed Full-time Lives: With Family Alcohol Use: Occasionally Substance Use Type: Marijuana Substance Use Comment - Amount & Last Used: 2 wks ago Smoking Status (MU): Never Smoked Tobacco Household Exposure Type: Cigarettes - Immunization History Most Recent Influenza Vaccination: none Most Recent Tetanus Shot: UTD Most Recent Pneumonia Vaccination: none Vaccination Up to Date: Yes Review of Systems Constitutional: Negative Skin: Negative Motor: Other - b/l hip pain All Other Systems Reviewed And Are Negative: Yes Physical Exam - Summary Physical Exam Summary: Vital Signs Reviewed: Yes A+Ox3, no distress Eyes: Conjunctiva Clear, MARYBETH. EOM intact and full ENT: Hearing grossly normal TM x 2 clear, mmoist, uvula midline, no exudate, no erythema Neck: Positive: Supple Respiratory: Positive: No respiratory distress, No accessory muscle use + CTA throughout no w/r Cardiovascular: RRR nl s1, s2 no m/r CBT <2 sec abd soft + BS nt/nd no guarding, no distension Musculoskeletal Exam: No pain c/t/l/s Full AROM c spine + SLE b/l + flex/ext knee ankle + point TTP b/l hips lateral aspect with direct palp. Pain increases with abductiion and external rotation b/l no limp Neurological: Positive: Alert, + sensation throughout 2+ patella b/l great toe flex/ext + gross b/l sensation Psychological: Positive: Normal Response To Family Skin: Positive: no rash, no ecchymosis Triage Information Reviewed: Yes Vital Signs: Initial Vital Signs Temp 98.2 F 07/12/18 10:42 Pulse 110 07/12/18 10:42 Resp 18 07/12/18 10:42 BP 134/82 07/12/18 10:42 Pulse Ox 100 07/12/18 10:42 Diagnostics - Radiology No standard instances Radiology Interpretation Completed By: Radiologist - Patient Name: JOSE NGO Medical Record#: [id number] Ordering Physician: Darya Ramirez MD Acct.#: [id number] : 1995 Age: 22 Sex: F Location: [facility] Exam Date: 07/12/18 1143 ADM Status: REG ER Order Information: PELVIS COMPLETE 3 VWS Accession Number: [id number] CPT: 63271 HISTORY: pain b/l hips COMPARISONS: None VIEWS: 2 , frontal views of the pelvis with the hips and the frontal and frog-leg positions bilaterally. FINDINGS: BONE DENSITY: Normal. BONES: There is no displaced fracture. JOINTS: There is no arthropathy. ALIGNMENT: There is no dislocation. SOFT TISSUES: Unremarkable. OTHER FINDINGS: An IUD is noted.. IMPRESSION: NO ACUTE OSSEOUS INJURY. IF SYMPTOMS PERSIST, RECOMMEND REPEAT IMAGING. <Electronically signed by Andrea Myers MD in OV> 07/12/181158 Dictated By: Andrea Myers MD Dictated Date/Time: 07/12/181158 Transcribed Date/Time: 07/12/181158 Copy to: CC: Indu Schneider MD; Darya Ramirez MD Imaging - [facility] Imaging - [facility] Imaging - [facility] [address] [address] ph [phone] ph ([phone]) ph ([phone]) This report is only to be considered final once signed by the Provider(s) as displayed in the "<Electronically Signed by >" field (s). Absence of a signature indicates the report is in a draft status and still needs to be finalized. In the event this document was created by someone other than the signing Provider, the individual initiating the document will be listed in the "Entered by:" or "Dictated by:" [email or web address]. 1 of 1 Lower Extremity Course/Dx - Course Course Of Treatment: Pt with b/l hips, intermittent, improve with motrin. on exam, pt with point tenderness latearl hips with rom. distal CSM intact. will check imaging. recommend heat. motrin/apap. refer to sports medicine - Differential Dx/Diagnosis Provider Diagnoses: bilateral hip pain Discharge - Sign-Out/Discharge Documenting (check all that apply): Patient Departure All imaging exams completed and their final reports reviewed: Yes - Discharge Plan Condition: Stable Disposition: HOME Patient Education Materials: Hip Bursitis (ED) Referrals: [facility] [Provider Group] Indu Schneider MD [Primary Care Provider] - Additional Instructions: - Alternate ibuprofen (Advil, Motrin) 600mg and Tylenol every 3hours for pain. Take with food. - Apply heat to your hips -once your muscles are warm, slow gentle stretching exercises - Contact the sports medicine provider today to schedule a follow-up appointment. You may be request to be seen in [place] office - If you have increased or uncontrolled pain, numbness or tingling down your legs, leg weakness, or difficulty with your bowel or bladder it is recommended you go directly to the emergency department - Billing Disposition and Condition Condition: STABLE Disposition: Home
== END 2018-07-12 12:10 | disposition home or self-care (01) ==
LOC: UCCORT 09:57
DX: M25.552 Pain in left hip (principal); M25.551 Pain in right hip; F12.90 Cannabis use, unspecified, uncomplicated; Z88.1 Allergy status to other antibiotic agents; Z88.2 Allergy status to sulfonamides
CPT/HCPCS: 72190; 99211; G0463

== ENCOUNTER 2018-08-22 11:45 | Emergency (ER) | payer BC, MEDICAID ==
--- OUTSIDE RECORDS SUMMARY | 2018-08-22 12:02 | XMS REPORT | Continuity of Care Document ---
:1995 External Reference #:[id number] Author Name ColeTonie boucher Care Team Providers Name Role Phone Gracia Gao Primary Care Physician Unavailable Payers Type Date Identification Numbers Payment Provider Subscriber Policy Number: [id number] [place] [employer] Jose Ngo PayID: [id number] [address] [address] [place] [address] Effective: 2014 Policy Number: Lifetime Benefit Wing Ngo [id number] Solutions Expires: 2015 Group Number: [id number] PayID: [id number] [place] [address] Policy Number: [id number] Medicaid [place] Jose Ngo PayID: [id number] [address] [place] [address] Advance Directives Description No Information Available Problems Description No Active Problems Family History Date Family Member(s) Problem(s) Comments Father A&W Mother A&W First Sister Insulin Dependent Diabetes Second Sister A&W Paternal Grandfather Unknown Paternal Grandmother Unknown Maternal Grandfather A&W Maternal Grandmother Diabetes, Type 2 Social History Type Date Description Comments Sex Unknown Education Highest level RN completed, Associates Degree Lives With Boyfriend Occupation [employer] Tobacco Use Start: Unknown Never Smoked Cigarettes ETOH Use Rarely consumes alcohol Tobacco Use Start: Unknown Patient has never smoked Recreational Drug Use Current Drug User Marijuana 1X weekly Smoking Status Reviewed: 08/16/18 Patient has never smoked Exercise Type/Frequency Exercises regularly Seat Belt/Car Seat Always uses seat belt Currently Active Patient is currently sexually active Contraceptive Methods Current methods include copper T IUD STD's No STD History Allergies, Adverse Reactions, Alerts Date Description Reaction Status Severity Comments 05/25/2013 Sulfa Active Medications Medication Date Status Form Strength Qnty SIG Indications Ordering Provider Albuterol / Active Nebulizer Unknown Sulfate 0000 Naproxen 12/15/ Hx Tablets 500mg 30tabs Take 1 by Alejandrina 2015 - mouth Juan Jose, 06/05/ every 12 2017 hours as needed for cramping with food Nitrofurantoin 01/28/ Hx Capsules 100mg 10caps take 1 599.0 Baclawski Monohyd Macro 2015 - tab PO , Karen, 12/15/ bid x5 MD 2015 days Diflucan 07/03/ Hx Tablets 150mg 2tabs take 1 Alejandrina 2012 - tab. now, Juan Jose, 08/26/ if 2013 signs/sym ptoms not resolved in 72 hours, repeat dose Nuvaring 05/25/ Hx Ring 0.12-0.[address] Alejandrina 2012 - mg/24HR Nuvaring Juan Jose, 10/03/ For 3 2014 Weeks, Remove X 1 Week Trazodone HCL / Hx Unknown 0000 - 2014 Celexa / Hx Tablets 20mg 1 by Unknown 0000 - mouth 06/05/ every day 2017 Immunizations Description No Information Available Vital Signs Date Vital Result Comment 08/16/2018 11:28am Height 62.5 inches 5'2.50" 0 Parity 0 06/05/2018 1:01pm BP Systolic 110 mmHg BP Diastolic 64 mmHg Height 62.5 inches 5'2.50" Weight 112.00 lb BMI (Body Mass Index) 20.2 kg/m2 Last Menstrual Period 0193546 0 Parity 0 01/04/2017 8:52am BP Systolic 120 mmHg BP Diastolic 72 mmHg Height 62.5 inches 5'2.50" Weight 115.00 lb BMI (Body Mass Index) 20.7 kg/m2 Last Menstrual Period 8423767 0 12/16/2015 2:10pm BP Systolic 106 mmHg BP Diastolic 64 mmHg Height 62.5 inches 5'2.50" Weight 116.00 lb BMI (Body Mass Index) 20.9 kg/m2 Last Menstrual Period 1118615 0 Parity 0 01/28/2015 1:36pm BP Systolic 122 mmHg BP Diastolic 74 mmHg Height 62.5 inches 5'2.50" Weight 123.00 lb BMI (Body Mass Index) 22.1 kg/m2 Last Menstrual Period 5022029 0 Parity 0 11/28/2014 8:29am BP Systolic 106 mmHg BP Diastolic 62 mmHg Height 62.5 inches 5'2.50" Weight 129.00 lb BMI (Body Mass Index) 23.2 kg/m2 Last Menstrual Period 3137158 0 Parity 0 10/03/2014 2:23pm BP Systolic 118 mmHg BP Diastolic 86 mmHg Height 62.5 inches 5'2.50" Weight 127.00 lb BMI (Body Mass Index) 22.9 kg/m2 Last Menstrual Period 6002689 0 08/26/2014 7:48am BP Systolic 106 mmHg BP Diastolic 54 mmHg Height 62.5 inches 5'2.50" Weight 133.00 lb BMI (Body Mass Index) 23.9 kg/m2 Last Menstrual Period 6674796 0 07/03/2013 9:14am BP Systolic 102 mmHg BP Diastolic 60 mmHg Height 62.5 inches 5'2.50" Weight 141.00 lb BMI (Body Mass Index) 25.4 kg/m2 Last Menstrual Period 4126446 0 05/25/2013 9:53am BP Systolic 116 mmHg BP Diastolic 70 mmHg Height 62.5 inches 5'2.50" Weight 143.00 lb BMI (Body Mass Index) 25.7 kg/m2 Last Menstrual Period 2681209 0 Results Test Date Facility Test Result H/L Range Note Laboratory test [facility] Gardnerella/Yeas SEE RESULT 1 finding [address] [place] [address] t: Vaginal Dna BELOW [phone] [facility] Chlamydia Negative Negative Probe [address] [place] [address] trachomatis Rna [phone] Neisseria gonorrhoeae (GC) Rna Negative Negative Laboratory test 06/05/2018 [facility] Trichomonas Negative Negative [address] [place] [address] vaginalis [phone] Result Laboratory test 01/04/2017 [facility] Cytology SEE RESULT [address] [place] [address] BELOW [phone] GC/Chlamydia 01/04/2017 [facility] Chlamydia Negative [place] [address] trachomatis Rna [phone] Neisseria gonorrhoeae (GC) Rna Negative Negative Laboratory test 01/04/2017 [facility] Trichomonas Negative Negative [address] [place] [address] Vaginalis Rna [phone] Urine Culture And 12/16/2015 [facility] Urine Culture SEE RESULT 5 [place] [address] BELOW [phone] Laboratory test 12/16/2015 [facility] Gardnerella/Yea SEE RESULT [address] [place] [address] st: Vaginal Dna BELOW [phone] Urine Culture And 01/28/2015 [facility] Urine Culture (SEE NOTE ) 7 [place] [address] [phone] GC/Chlamydia Dna 08/26/2014 [facility] Chlamydia Negative [place] [address] trachomatis Rna [phone] Neisseria gonorrhoeae (GC) Rna Negative Negative 8 1 SEE RESULT BELOW Name: JOSE NGO : [address]: Iveth Alas CNM Acct: [id number] Unit: [id number] AGE: 22 Location: [facility] Re06/05/18 SEX: F Status: REG REF SPEC: [id number] EMMA: 06/05/18-[address]: Iveth Alas CNM REQ: [id number] RECD: 06/05/187803 STATUS: COMP _ SOURCE: VAGINAL SPDESC: ORDERED: Feliciano,Yeast DNA COMMENTS: [id number] Would you like to order Trichomonas Vaginalis testing? Y Procedure Result Reported Site Gardnerella/Yeast: Vaginal DNA Final 06/06/18- 1432 ML Organism 1 Negative Gardnerella Organism 2 Negative Sanna The presence of G. vaginalis, although suggestive, is not diagnostic for bacterial vaginosis. Results should be interpreted in conjuction with other clinical and laboratory data available. Women with vaginal discharge should be evaluated for risk factors of cervicitis and pelvic inflammatory disease, toxic shock syndrome (S.aureus), and if present, evaluated for organisms not included in this assay such as N. gonorrhoeae, C. trachomatis, Mobiluncus, Mycoplasma and/or Prevotella. Mixed infections may occur. The performance of this test on patient specimens collected during or immediately after antimicrobial therapy is unknown. The presence or absence of Sanna species, or G. vaginalis cannot be used as a test for therapeutic success or failure. * ML - Main Lab . END OF REPORT DEPARTMENT OF PATHOLOGY, [address] [place] [address] Perico Dean M.D. Director [facility] # [id number] 2 [id number] GC/Chlamydia Source?: Endocervical Trichomonas Source: Endocervical 3 SEE RESULT BELOW Name: JOSE NGO : [address]: Kiersten Ribeiro NP Acct: [id number] Unit: [id number] AGE: 21 Location: [facility] Re01/04/17 SEX: F Status: REG REF SPEC: [id number] EMMA: 01/04/1725 [facility] DR: Kiersten Ribeiro NP REQ: [id number] RECD: 01/04/17-1239 STATUS: SOUT _ ORDERED: IMAGE ANALYSIS COMMENTS: [id number] FINAL DIAGNOSIS Negative for Intraepithelial lesion or Malignancy A. Ectocervical/Endocervical Specimen Adequacy: Satisfactory of evaluation Transformation zone component identified Patient Information: HPV: Thin Layer Pap Test w/reflex to high risk HPV RNA testing when ASCUS Actual Specimen Date: 01/04/17 Last Menstrual Date: 12/27/16 Signed (signature on file) RHODA Doan(ASCP) 01/05 1442 This Pap test was evaluated with the assistance of the ThinPrep Test Imaging System. Due to cytologic findings at the technical assoc microscope, comprehensive manual rescreening by a Tobacco Stripper may be required. The Pap Smear is a screening test designed to aid in the detection of premalignant and malignant conditions of the uterine cervix. It is not a diagnostic procedure and should not be used as the sole means of detecting cervical cancer. Both false- positive and false- negative reports do occur. Depending on your risk status, a Pap smear should be obtained and evaluated every 1-3 years. END OF REPORT * ML=Testing performed at Main Lab DEPARTMENT OF PATHOLOGY, [address] [place] [address] Perico Dean M.D. Director [facility] # [id number] 4 [id number] GC/Chlamydia Source?: Thin Prep Trichomonas Source: Thin Prep 5 SEE RESULT BELOW Name: NGOJOSE Mayda : [address]: Kiersten Ribeiro NP Acct: [id number] Unit: [id number] AGE: 20 Location: [facility] Re12/16/15 SEX: F Status: REG REF SPEC: [id number] EMMA: 12/16/15-[address]: Kiersten Ribeiro NP REQ: [id number] RECD: 12/17/15 STATUS: COMP _ SOURCE: URINE SPDESC: ORDERED: Urine Culture Procedure Result Reported Site Urine Culture Final 12/18/15- 1335 ML No growth of clinically significant organisms * ML - MAIN LAB ([facility]1) . END OF REPORT * ML=Testing performed at Main Lab DEPARTMENT OF PATHOLOGY, [address] [place] [address] Perico Dean M.D. Director [facility] # [id number] 6 SEE RESULT BELOW Name: JOSE NGO : [address]: Kiersten Ribeiro NP Acct: [id number] Unit: [id number] AGE: 20 Location: [facility] Re12/16/15 SEX: F Status: REG REF SPEC: [id number] EMMA: 12/16/15-14[address] [facility] [address]: Kiersten Ribeiro NP REQ: [id number] RECD: 12/17/15-1110 STATUS: COMP _ SOURCE: VAGINAL SPDESC: ORDERED: Feliciano,Yeast DNA, Trich DNA Procedure Result Reported Site Gardnerella/Yeast: Vaginal DNA Final 12/18/15- 1020 ML Organism 1 Negative Gardnerella Organism 2 Negative Sanna The presence of G. vaginalis, although suggestive, is not diagnostic for bacterial vaginosis. Results should be interpreted in conjuction with other clinical and laboratory data available. Women with vaginal discharge should be evaluated for risk factors of cervicitis and pelvic inflammatory disease, toxic shock syndrome (S.aureus), and if present, evaluated for organisms not included in this assay such as N. gonorrhoeae, C. trachomatis, Mobiluncus, Mycoplasma and/or Prevotella. Mixed infections may occur. The performance of this test on patient specimens collected during or immediately after antimicrobial therapy is unknown. The presence or absence of Sanna species, or G. vaginalis cannot be used as a test for therapeutic success or failure. Trichomonas: Vaginal DNA Probe Final 12/18/15- 1020 ML Organism 1 Negative Trichomonas CONTINUED ON NEXT PAGE * ML=Testing performed at Main Lab DEPARTMENT OF PATHOLOGY, [address] [place] [address] Perico Dean M.D. Director [facility] # [id number] Patient: JOSE NGO [id number] (Continued) Specimen: [id number] Collected: 12/16/15-1456 Received: 12/17/15-1111 (Continued) Procedure Result Reported Site Trichomonas: Vaginal DNA Probe Final (continued) 12/18/15- 1020 The presence or absence of T. vaginalis cannot be used as a test for therapeutic success or failure. * ML - MAIN LAB ([facility]) . END OF REPORT * ML=Testing performed at Main Lab DEPARTMENT OF PATHOLOGY, [facility] [address] [place], [place] [address] Perico Dean M.D. Director [facility] # [id number] 7 RUN DATE: 01/30/15 [facility] LAB LIVE PAGE 1 RUN TIME: 1233 [facility] [place], [place] [address] Specimen Inquiry Name: JOSE NGO : [address]: Karen Hooper MD Acct: [id number] Unit: [id number] AGE: 19 Location: [facility] Re01/28/15 SEX: F Status: REG REF SPEC: [id number] EMMA: 01/28/15-[address]: Karen Hooper MD REQ: [id number] RECD: 01/28/15 STATUS: COMP _ SOURCE: URINE SPDESC: ORDERED: Urine Culture COMMENTS: QUERIES: Provider Requisition # [id number] Procedure Result Verified Site Urine Culture Final 01/30/15- 1233 ML No Growth Day 2 (<1,000 CFU/mL) * ML - MAIN LAB ([facility]) . END OF REPORT * ML=Testing performed at Main Lab DEPARTMENT OF PATHOLOGY, [address] [place] [address] Perico Dean M.D. Director [facility] # [id number] 8 Female urine specimens have been self-validated by [facility] and have been granted conditional assay approval by [facility]. Procedures Date Code Description Status 06/05/2018 71209 Echography Transvaginal Completed 10/03/2014 58255 Insert Intrauterine Device Completed Encounters Type Date Location Provider Dx Diagnosis Office Visit 06/05/2018 [facility] Iveth Alas, Z30.431 Encounter for routine 1:20p CNM checking of intrauterine contracep dev Z01.419 Encntr for block feeder exam (general) (routine) w/o abn findings R10.2 Pelvic and perineal pain Office Visit 01/04/2017 9:00a [facility] Kiersten Ribeiro NP Z01.419 Encntr for block feeder exam (general) (routine) w/o abn findings Office Visit 12/16/2015 2:30p [facility] Office Kiersten Ribeiro NP Z01.419 Encntr for block feeder exam (general) (routine) w/o abn findings Z12.4 Encounter for screening for malignant neoplasm of cervix Office Visit 01/28/2015 2:00p [facility] Karen Hooper, 599.0 UTI Urinary Tract Infection Site Not Spec Office Visit 11/28/2014 8:30a [facility] Karen Hooper, V25.42 Contraceptive MD Intrauterine Device Surveillance Office Visit 08/26/2014 8:00a [facility] Kiersten Ribeiro NP V72.31 Routine Rubber Compounder Examination V25.8 Contraceptive Management Spec Other V76.2 Screening Malignant Neoplasm Cervix Office Visit 07/03/2013 9:30a [facility] Kiersten Ribeiro V25.8 Contraceptive FILENET ARCHITECT Management Spec Other 616.10 Vaginitis & Vulvovaginitis Unspec V76.41 Screening Malignant Neoplasm Rectum Office Visit 05/25/2013 10:00a [facility] Kiersten Ribeiro, V72.31 Routine Rubber Compounder FILENET ARCHITECT Examination V25.8 Contraceptive Management Spec Other V76.2 Screening Malignant Neoplasm Cervix Plan of Treatment 01/28/2015 - Karen Hooper MD599.0 UTI Urinary Tract Infection Site Not SpecNew Medication:Nitrofurantoin Monohyd Macro 100 mg - take 1 tab PO bid x5 days
[2018-08-22 12:59] VITALS: BP 128/71
[2018-08-22] MEDS ORDERED: Albuterol/Ipratropium NEB.SOL* Albuterol 2.5 MG/Ipratropium 0.5 MG 3 ML INH ONE (13:47)
--- NOTE | 2018-08-22 13:47 | UC ---
UC General HPI - HPI Summary HPI Summary: Pleasant 22 yo female c/o fatigue, cough, sinus / ear pressure progressively worse over the last several (5-6 days). No known fever. No rash. No GI issues. Hx pneumonia 2 years ago. Hx bronchitis last year. - History of Current Complaint Chief Complaint: UCGeneralIllness Stated Complaint: ST,SINUS COMPLAINT Time Seen by Provider: 08/22/18 13:16 Hx Obtained From: Patient Hx Last Menstrual Period: 08/08/18 Pain Intensity: 5 - Allergy/Home Medications Allergies/Adverse Reactions: Allergies Allergy/AdvReac Type Severity Reaction Status Date / Time amoxicillin Allergy Rash Verified 08/22/18 12:57 Sulfa (Sulfonamide Allergy Rash Verified 08/22/18 12:57 Antibiotics) PMH/Surg Hx/FS Hx/Imm Hx Previously Healthy: Yes - see hpi - Surgical History Surgical History: Yes Surgery Procedure, Year, and Place: t&a, Appendectomy 12/30/13. Tonsillectomy - Family History Known Family History: Positive: None, Other - anemia Negative: Cardiac Disease - Social History Alcohol Use: Rare Substance Use Type: Marijuana Substance Use Comment - Amount & Last Used: occasionally Smoking Status (MU): Never Smoked Tobacco Household Exposure Type: Cigarettes - Immunization History Most Recent Influenza Vaccination: none Most Recent Tetanus Shot: UTD Most Recent Pneumonia Vaccination: none Vaccination Up to Date: Yes Review of Systems All Other Systems Reviewed And Are Negative: Yes Constitutional: Positive: Fatigue Skin: Positive: Negative Eyes: Positive: Negative ENT: Positive: Other - see hpi Respiratory: Positive: Cough Cardiovascular: Positive: Other Gastrointestinal: Positive: Other Motor: Positive: Negative Neurovascular: Positive: Negative Musculoskeletal: Positive: Negative Neurological: Positive: Negative Psychological: Positive: Negative Is Patient Immunocompromised?: No Physical Exam Triage Information Reviewed: Yes Appearance: Well-Nourished - sitting up. Conversing full sentances. Looks tired but nontoxic. Vital Signs: Initial Vital Signs Temp 98.2 F 08/22/18 12:55 Pulse 93 08/22/18 12:55 Resp 18 08/22/18 12:55 BP 128/71 08/22/18 12:55 Pulse Ox 100 08/22/18 12:55 Vital Signs Reviewed: Yes Eye Exam: Normal ENT: Positive: Pharyngeal erythema - mild post pharyngeal redness, no sores / exudates. Uvula midline., Nasal congestion, TM dull Neck exam: Normal Neck: Positive: Supple, Nontender, No Lymphadenopathy Respiratory Exam: Other - occas exp wheezes bibas. + rhonchus R ant chest. Respiratory: Positive: No respiratory distress, No accessory muscle use Cardiovascular Exam: Other - HR 100's during triage, increases to 110's during exam. No murmur appreciated. Cardiovascular: Positive: Pulses Normal, Brisk Capillary Refill Abdominal Exam: Normal Abdomen Description: Positive: Nontender - no c/o. soft. Musculoskeletal Exam: Normal - gait steady. moves x 4 ext's Neurological Exam: Normal - grossly intact Psychological Exam: Normal - conversing easily and appropriately Skin Exam: Normal - no visible or reported rash Course/Dx - Course Course Of Treatment: Improved after duoneb. Reviewed xray report with Morejon. Reviewed coa / tx plan. Questions as posed answered to the best of my ability. - Diagnoses Provider Diagnosis: Acute bronchitis, Bronchospasm Discharge - Sign-Out/Discharge Documenting (check all that apply): Patient Departure All imaging exams completed and their final reports reviewed: Yes - Discharge Plan Condition: Stable Disposition: HOME Prescriptions: Albuterol 2.5MG/3ML (0.083%)* [Ventolin 2.5 MG/3 ML NEB.ANGEL*] 2.5 mg INH Q6H PRN #1 box PRN Reason: Wheezing Albuterol HFA INHALER* [Ventolin HFA Inhaler*] 1 - 2 puff INH Q4H PRN #1 mdi PRN Reason: Wheezing Patient Education Materials: Bronchospasm (ED), Acute Bronchitis (ED) Referrals: Indu Schneider MD [Primary Care Provider] - - Billing Disposition and Condition Condition: STABLE Disposition: Home
== END 2018-08-22 14:38 | disposition home or self-care (01) ==
LOC: UCCORT 11:45
DX: J20.9 Acute bronchitis, unspecified (principal); Z88.0 Allergy status to penicillin; Z88.1 Allergy status to other antibiotic agents
CPT/HCPCS: 71046; 99212; A9270-GY; G0463

== ENCOUNTER 2018-12-18 15:39 | Emergency (ER) | payer BC, MEDICAID ==
[2018-12-18 16:13] VITALS: BP 123/72
--- NOTE | 2018-12-18 16:13 | UC ---
Throat Pain/Nasal Alexander HPI - HPI Summary HPI Summary: Ill with URI symptoms for 2 days. 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 - History of Current Complaint Chief Complaint: UCGeneralIllness Stated Complaint: HEADACHE/CONGESTION Time Seen by Provider: 12/18/18 16:13 Hx Obtained From: Patient Hx Last Menstrual Period: iud ?: No Onset/Duration: Gradual Onset Severity: Mild Pain Intensity: 3 Cough: Nonproductive Associated Signs & Symptoms: Positive: Sinus Discomfort, Nasal Discharge - Epiglottits Risk Factors Epiglottis Risk Factors: Negative - Allergies/Home Medications Allergies/Adverse Reactions: Allergies Allergy/AdvReac Type Severity Reaction Status Date / Time amoxicillin Allergy Rash Verified 12/18/18 16:03 Sulfa (Sulfonamide Allergy Rash Verified 12/18/18 16:03 Antibiotics) Home Medications: Home Medications Dm/PE/Acetaminophen/Doxylamine [Nighttime Severe Col... 5-6.25-10-325 mg/15Ml] 30 ml PO BEDTIME PRN 12/18/18 [History Confirmed 12/18/18] Levonorgestrel (Iud) [Kyleena IUD] 17.5 mcg IU ONCE 12/18/18 [History Confirmed 12/18/18] PMH/Surg Hx/FS Hx/Imm Hx Previously Healthy: Yes - Surgical History Surgical History: Yes Surgery Procedure, Year, and Place: t&a, Appendectomy 12/30/13. Tonsillectomy - Family History Known Family History: Positive: None, Other - anemia Negative: Cardiac Disease - Social History Alcohol Use: Rare Substance Use Type: Marijuana Substance Use Comment - Amount & Last Used: occasionally Smoking Status (MU): Never Smoked Tobacco Household Exposure Type: Cigarettes - Immunization History Most Recent Influenza Vaccination: none Most Recent Tetanus Shot: UTD Most Recent Pneumonia Vaccination: none Vaccination Up to Date: Yes Review of Systems All Other Systems Reviewed And Are Negative: Yes Constitutional: Positive: Chills ENT: Positive: Nasal Discharge, Sinus Congestion, Sinus Pain/Tenderness Respiratory: Positive: Cough - Dry non-productive cough Cardiovascular: Positive: Negative Gastrointestinal: Positive: Negative Genitourinary: Positive: Negative Motor: Positive: Negative Neurovascular: Positive: Negative Musculoskeletal: Positive: Myalgia Neurological: Positive: Headache - Mild headache Psychological: Positive: Negative Is Patient Immunocompromised?: No Physical Exam Triage Information Reviewed: Yes Appearance: Well-Appearing, No Pain Distress, Well-Nourished Vital Signs: Initial Vital Signs Temp 98.4 F 12/18/18 16:07 Pulse 75 12/18/18 16:07 Resp 16 12/18/18 16:07 BP 123/72 12/18/18 16:07 Pulse Ox 100 12/18/18 16:07 Vital Signs Reviewed: Yes Eye Exam: Normal ENT: Positive: Hearing grossly normal, Pharynx normal, Nasal congestion, Nasal drainage - Clear nasal coryza, TMs normal, Uvula midline. Negative: Tonsillar swelling, Tonsillar exudate, Trismus, Muffled voice, Hoarse voice, Sinus tenderness Neck exam: Normal Respiratory Exam: Normal Cardiovascular Exam: Normal Abdominal Exam: Normal Bowel Sounds: Positive: Present Musculoskeletal Exam: Normal Neurological Exam: Normal Psychological Exam: Normal Skin Exam: Normal Throat Pain/Nasal Course/Dx - Course Course Of Treatment: Comfortable here, flu test negative - Differential Dx/Diagnosis Differential Diagnosis/HQI/PQRI: URI Provider Diagnosis: URI (upper respiratory infection) Discharge - Sign-Out/Discharge Documenting (check all that apply): Patient Departure All imaging exams completed and their final reports reviewed: No Studies - Discharge Plan Condition: Good Disposition: HOME Patient Education Materials: Upper Respiratory Infection (DC) Referrals: Indu Schneider MD [Primary Care Provider] - Additional Instructions: Increase fluids, OTC cold meds as directed. - Billing Disposition and Condition Condition: GOOD Disposition: Home
[2018-12-18 17:28] LABS: Influenza A Molecular NEGATIVE (Negative); Influenza B Molecular NEGATIVE (Negative)
== END 2018-12-18 17:43 | disposition home or self-care (01) ==
LOC: UCCORT 15:39
DX: J06.9 Acute upper respiratory infection, unspecified (principal); Z88.0 Allergy status to penicillin; Z88.2 Allergy status to sulfonamides
CPT/HCPCS: 99211; G0463

== ENCOUNTER 2019-07-01 11:57 | Emergency (ER) | payer MEDICAID, OTHER ==
--- OUTSIDE RECORDS SUMMARY | 2019-07-01 13:08 | XMS REPORT | Summary of Care ---
:1995 Author Organization [facility] Address [address] [address] Care Team Providers Name Role Phone Indu Schneider MD Primary Care Provider Reason for Visit Reason Comments New Patient Left foot, third toe possible ingrown toenail for about 2 months. Encounter Details Date Type Department Care Team Description 06/08/2019 Office Visit Alicia Bethany [facility] [employer] (Primary Dx) [address] [place] [address] [place] [address] [phone] Allergies Active Allergy Reactions Severity Noted Date Comments Sulfa Antibiotics Dermatologic Reaction 05/07/2014 rash documented as of this encounter (statuses as of 06/08/2019) Medications Medication Sig Dispensed Refills Start Date End Date Status albuterol HFA Take 2 Puffs by 3 Inhaler 3 04/07/2015 Active (PROAIR HFA) 108 inhalation EVERY (90 BASE) MCG/ACT FOUR HOURS Inhalation Aero NEEDED (asthma). SolnIndications: Reactive airway disease IBUPROFEN 200 PO Take 600 mg by 0 Active mouth TWICE DAILY. Levonorgestrel by Intrauterine 0 12/18/2018 Active (KYLEENA) 19.5 MG route. Intrauterine IUD busPIRone (BUSPAR) Take 1 Tab by 30 Tab 1 01/31/2018 06/08/20 Discontinued 5 MG Oral mouth THREE TIMES 19 TabIndications: DAILY NEEDED Anxiety (anxiety). documented as of this encounter (statuses as of 06/08/2019) Active Problems Problem Noted Date Anxiety 01/31/2018 Mild intermittent asthma without complication 05/07/2014 Migraine 05/07/2014 Overview: Chronic daily headache - Which becomes migrainous S/P appy 05/07/2014 documented as of this encounter (statuses as of 06/08/2019) Immunizations Name Administration Dates Next Due DTAP Vaccine 02/24/2001, 10/27/1996, 04/26/1996, 02/25/1996, 1995 HIB 10/27/1996, 04/26/1996, 02/25/1996, 1995 Hepatitis A Vaccine Peds 07/28/2011, 11/24/2010 Hepatitis B Vaccine 04/26/1996, 1995, 1995 Human Papillomavirus 10/18/2007, 06/16/2007, 04/03/2007 Influenza (IM) Preservative Free 07/08/2017 MENINGOCOCCAL CONJUGATE VACCINE 04/19/2017, 06/16/2007 MENINGOCOCCAL POLYSACCHARIDE 05/25/2012 VACCINE(MENOMUNE) MMR VACCINE 02/24/2001, 10/27/1996 Polio - Inactivated Vaccine 02/24/2001, 04/26/1996, 02/25/1996, 1995 TDAP Vaccine 04/19/2017, 06/16/2007 Varicella Vaccine Live 05/25/2012, 10/16/2009 documented as of this encounter Social History Tobacco Use Types Packs/Day Years Used Date Never Smoker Smokeless Tobacco: Never Used Alcohol Use Drinks/Week oz/Week Comments Yes occasional Sex Assigned at Date Recorded Not on file Job Start Date Occupation Industry Not on file Not on file Not on file Travel History Travel Start Travel End No recent travel history available. documented as of this encounter Last Filed Vital Signs Vital Sign Reading Time Taken Comments Blood Pressure 120/70 06/08/2019 2:47 PM EDT Pulse 80 06/08/2019 2:47 PM EDT Temperature 37.1 06/08/2019 2:47 PM EDT C (98.7 F) Respiratory Rate - - Oxygen Saturation - - Inhaled Oxygen Concentration - - Weight 53.5 kg (118 lb) 06/08/2019 2:47 PM EDT Height 160 cm (5' 3") 06/08/2019 2:47 PM EDT Body Mass Index 20.9 06/08/2019 2:47 PM EDT documented in this encounter Patient Instructions Patient InstructionsBethany Hale FNP - 06/08/2019 2:40 PM EDTSoak foot in warm water and distilled vinegar Apply Tea Tree oil twice a day Consider podiatry - Dr Chilel - if increased pain and swelling documented in this encounter Progress Notes Bethany Hale FNP - 06/08/2019 2:40 PM EDT PATIENT: Desirae Morejon : 1995 DATE OF SERVICE: 06/08/2019 CHIEF COMPLAINT: Chief Complaint Patient presents with New Patient Left foot, third toe possible ingrown toenail for about 2 months. Subjective HISTORY OF PRESENT ILLNESS: Desirae Morejon is a 23-y.o. female. HPI Pain left 3rd toe x 2 months - no injury Past Medical History: Diagnosis Date Asthma Headache disorder Family History Problem Relation Age of Onset Blood Disease Mother iron def anemia Psychiatry Mother LILI GI Father GERD Diabetes Sister 5 type 1 Psychiatry Sister depression No Known Problems Sister Heart Maternal Grandmother afib Hypertension Maternal Grandmother Psychiatry Maternal Grandmother LILI Current Outpatient Medications Medication Sig albuterol HFA (PROAIR HFA) 108 (90 BASE) MCG/ACT Inhalation Aero Soln Take 2 Puffs by inhalation EVERY FOUR HOURS NEEDED (asthma). IBUPROFEN 200 PO Take 600 mg by mouth TWICE DAILY. Levonorgestrel (KYLEENA) 19.5 MG Intrauterine IUD by Intrauterine route. No current facility-administered medications for this visit. Allergies Allergen Reactions Sulfa Antibiotics Dermatologic Reaction rash Social History Socioeconomic History Marital status: Single Spouse name: Not on file Number of children: Not on file Years of education: Not on file Highest education level: Not on file Occupational History Not on file Social Needs Financial resource strain: Not on file Food insecurity: Worry: Not on file Inability: Not on file Transportation needs: Medical: Not on file Non-medical: Not on file Tobacco Use Smoking status: Never Smoker Smokeless tobacco: Never Used Substance and Sexual Activity Alcohol use: Yes Comment: occasional Drug use: Yes Types: Marijuana Comment: 1-2x/mo Sexual activity: Yes Partners: Male control/protection: IUD Comment: Reed Neal Lifestyle Physical activity: Days per week: Not on file Minutes per session: Not on file Stress: Not on file Relationships Social connections: Talks on phone: Not on file Gets together: Not on file Attends yarsanism service: Not on file Active member of club or organization: Not on file Attends meetings of clubs or organizations: Not on file Relationship status: Not on file Intimate partner violence: Fear of current or ex partner: Not on file Emotionally abused: Not on file Physically abused: Not on file Forced sexual activity: Not on file Other Topics Concern Back Care Not Asked Bike Helmet Not Asked Blood Transfusions No Caffeine Concern Not Asked Exercise Yes Comment: gym almost daily Hobby Hazards Not Asked International Travel Not Asked Service Not Asked Occupational Exposure Not Asked Seat Belt Not Asked Self-Exams Not Asked Sleep Concern Not Asked Special Diet Not Asked Stress Concern Not Asked Weight Concern Not Asked Social History Narrative Single No children. Home health aide, maintenance supervisor 2nd shift at [employer] Student at [employer] class of 2017---nursing degree. Pets: dogs Over the last 2 weeks, have you been feeling down, depressed, anxious, or hopeless?: 0 Over the past 2 weeks, have you felt little interest or pleasure in doing things ?: 0 REVIEW OF SYSTEMS: Review of Systems Constitutional: Negative for chills and fever. Musculoskeletal: Positive for myalgias. Skin: Negative for rash. Objective PHYSICAL EXAM: VITALS: BP 120/70 | Pulse 80 | Temp 98.7 F (37.1 C) | Ht 5' 3" (1.6 m) | Wt 118 lb (53.5 kg) | BMI 20.90 kg/m Body mass index is 20.9 kg/m . Physical Exam Constitutional: She is oriented to person, place, and time. She appears well- developed and well-nourished. HENT: Head: Normocephalic and atraumatic. Cardiovascular: Pulses: Dorsalis pedis pulses are 2+ on the left side. Posterior tibial pulses are 2+ on the left side. Feet: Left Foot: Skin Integrity: Positive for callus. Negative for ulcer, blister, skin breakdown , erythema or warmth. Neurological: She is alert and oriented to person, place, and time. No sensory deficit. Gait normal. Skin: Vitals reviewed. ASSESSMENT / IMPRESSION: ICD-9-CM ICD-10-CM 1. Callus of foot 700 L84 left 3rd toe at nail edge Plan Callus pared with #11 blade - tolerated well Soak foot in warm water and distilled vinegar Apply Tea Tree oil twice a day Consider podiatry - Dr Chilel - if increased pain and swelling Author: [facility] [place] 06/08/2019 15:33 documented in this encounter Plan of Treatment Health Maintenance Due Date Last Done Comments PNEUMOCOCCAL 0-64 YRS (1 of 1 - 2001 PPSV23) CHLAMYDIA SCREENING 01/24/2018 01/24/2017 PAP SMEAR 01/25/2020 01/24/2017 DEPRESSION SCREENING 06/08/2020 06/08/2019, 01/31/2018 HPV IMMUNIZATION SERIES Completed 10/18/2007, 06/16/2007, 04/03/2007 MENINGOCOCCAL VACCINE IMM Completed 04/19/2017, 05/25/2012, 06/16/2007 documented as of this encounter Goals Goal Patient Goal Associated Recent Patient-Stated? Author Type Problems Progress Depression Depression 12 No Wyatt, screen (PHQ-9) (01/31/2018 Indu Bansal, total score < 5 11:52 AM EDT) Note: This is an individualized treatment (depression) goal for Desirae Biankamargarita Lopezair: Displayed above is your goal for a depression screening (PHQ-9) score that would indicate good control of your depression. Keep a regular sleep schedule Lifestyle No Indu Schneider MD Note: This is an individualized lifestyle goal for Desirae Carlton Morejon: Please maintain a regular sleep schedule. This may help with some symptoms of depression. Take all prescribed medications as Self-management No Indu Schneider MD directed Note: This is an individualized self-management goal for Desirae Biankamargarita Lopezair: Please take all prescribed medications as directed. 1. Do not skip doses. If you cannot afford your medications, talk with your doctor. 2. Use a pill reminder system such as a pill box if needed. Your pharmacist can help you with this. 3. Contact your Pharmacy 5 days before your medication runs out. If you cannot take your medications for any reasons, talk with your doctor. 4. Please bring all of your medication bottles and inhalers (or a list of all your medications/inhalers) with you to every visit. Potential barriers to meeting all of your care plan goals will continue to be addressed on an ongoing basis. documented as of this encounter Results Not on filedocumented in this encounter Visit Diagnoses Diagnosis Callus of foot - Primary Corns and callosities documented in this encounter Insurance Payer Benefit Plan / Subscriber ID Effective Dates Phone Address Type Group [employer]CIAL [employer] [facility] xxxxxxxxxx 2018-Present A[employer]na surinder [address] (Home) [address] [phone] [place], [place] (Work) [id number] documented as of this encounter
[2019-07-01 13:15] VITALS: BP 134/59
--- NOTE | 2019-07-01 13:25 | UC ---
Respiratory Complaint HPI - HPI Summary HPI Summary: Patient is 23 year old female, who present today to the urgent care with upper respiratory symptoms for past 5 days. She reports that her symptoms started with sore throat which seems to have resolved and now she has more congestion and cough productive of yellowish sputum. Denies any fever. There is associated postnasal drip and headache. Denies any sick contact Denies any chest pain or shortness of breath . No diaphoresis. Denies any abdominal pain , nausea or vomiting , diarrhea or constipation. She has tried NyQuil but that makes her very dry. - History of Current Complaint Chief Complaint: UCRespiratory Stated Complaint: CONGESTION,COUGH Time Seen by Provider: 07/01/19 13:10 Hx Obtained From: Patient Hx Last Menstrual Period: unknown Pain Intensity: 4 - Allergies/Home Medications Allergies/Adverse Reactions: Allergies Allergy/AdvReac Type Severity Reaction Status Date / Time amoxicillin Allergy Rash Verified 07/01/19 13:11 Sulfa (Sulfonamide Allergy Rash Verified 07/01/19 13:11 Antibiotics) Home Medications: Home Medications Albuterol 2.5MG/3ML (0.083%)* [Ventolin 2.5 MG/3 ML NEB.ANGEL*] 2.5 mg INH Q4H PRN 07/01/19 [History Confirmed 07/01/19] PMH/Surg Hx/FS Hx/Imm Hx - Additional Past Medical History Additional PMH: Past Medical History : Asthma Past Surgical History: T&A, and appendectomy Family History : non contributory Social History : Rare alcohol, non smoker, occasional marijuana use. Previously Healthy: Yes - Surgical History Surgical History: Yes Surgery Procedure, Year, and Place: t&a, Appendectomy 12/30/13. - Family History Known Family History: Positive: None, Other - anemia, Non-Contributory Negative: Cardiac Disease - Social History Alcohol Use: Rare Substance Use Type: Marijuana Substance Use Comment - Amount & Last Used: occasionally Smoking Status (MU): Never Smoked Tobacco Household Exposure Type: Cigarettes - Immunization History Most Recent Influenza Vaccination: none Most Recent Tetanus Shot: UTD Most Recent Pneumonia Vaccination: none Vaccination Up to Date: Yes Review of Systems All Other Systems Reviewed And Are Negative: Yes Constitutional: Positive: Negative Skin: Positive: Negative Eyes: Positive: Negative ENT: Positive: Sore Throat, Nasal Discharge, Sinus Congestion, Sinus Pain/ Tenderness Respiratory: Positive: Cough - productive Cardiovascular: Positive: Negative Gastrointestinal: Positive: Negative Genitourinary: Positive: Negative Motor: Positive: Negative Neurovascular: Positive: Negative Musculoskeletal: Positive: Negative Neurological: Positive: Headache Psychological: Positive: Negative Is Patient Immunocompromised?: No Physical Exam - Summary Physical Exam Summary: Physical Exam: Const: Appears well. No signs of apparent distress present. Alert and oriented x 3. Musculo: Walks with a normal gait. Head/Face: Atraumatic, normocephalic on inspection. Eyes: EOMI and PERRLA in both eyes. Conjunctivae clear. No discharge noted ENT: Hearing normal, TM normal appearing bilaterally, non bulging , non erythematous . Bilateral tenderness to palpation on maxillary and frontal sinus-mode tender in the maxillary sinus No significant pharyngeal erythema or exudates . Uvula is midline. No cervical or submandibular lymphadenopathy noted. Respiratory: Respirations are unlabored. Lungs clear to auscultation bilaterally, no wheezing , rhonchi or rales noted . CVS: Regular rate and Rhythm, S1S2 normal , no murmurs identified. Extremities: Peripheral circulation is grossly normal. Pulses 2+ Abdomen : Soft non tender , nondistended , Bowel sounds present . No guarding , rebound tenderness or rigidity noted. Skin: No lesions or rash located on the upper extremities or on the lower extremities. Neuro: Cranial nerves II to XII intact, motor and sensory intact. DTR Intact bilaterally. Mood is normal. Affect is normal. Triage Information Reviewed: Yes Vital Signs: Initial Vital Signs Temp 98.8 F 07/01/19 13:12 Pulse 87 07/01/19 13:12 Resp 18 07/01/19 13:12 BP 134/59 07/01/19 13:12 Pulse Ox 100 07/01/19 13:12 Vital Signs Reviewed: Yes Respiratory Course/Dx - Course Course Of Treatment: During the visit today, we discussed the findings and most likely her symptoms are viral in nature. This further treatment options and I will prescribe the antibiotic for delayed refill. She will fill it if still having symptoms after 2 days. I will prescribe the decongestant and Flonase nasal spray to the pharmacy . Patient expressed understanding . - Differential Dx/Diagnosis Provider Diagnosis: Viral syndrome, Acute viral sinusitis Discharge ED - Sign-Out/Discharge Documenting (check all that apply): Patient Departure All imaging exams completed and their final reports reviewed: No Studies - Discharge Plan Condition: Stable Disposition: HOME Prescriptions: Azithromyxin JOMAR (NF) [Z-Jomar (Zithromax) 250 mg tabs #6] 2 tab PO .TODAY, THEN 1 DAILY #6 tab Fluticasone NASAL SPRAY 50MCG* [Flonase NASAL SPRAY 50MCG*] 1 spray BOTH NARES DAILY 7 Days #1 btl Loratadine/Pseudoephedrine [Claritin-D 24 Hour Tablet] 1 each PO DAILY PRN 14 Days #14 tab.er.24h PRN Reason: Congestion Patient Education Materials: Sinusitis (ED), Viral Syndrome (ED) Referrals: Indu Schneider MD [Primary Care Provider] - 1 Week Additional Instructions: Please start taking the medication as prescribed to the pharmacy . I have prescribed antibiotic for a delayed refill if no improvement over next 2 days. Maintain hydration Ibuprofen or Tylenol as needed for fever Follow up with your primary care doctor in 1 week Patients blood pressure slightly high in Urgent care today , plan follow up with PCP for better control Return to Urgent care / ER if symptoms get worse. - Billing Disposition and Condition Condition: STABLE Disposition: Home
== END 2019-07-01 13:37 | disposition home or self-care (01) ==
LOC: UCCORT 11:57
DX: J01.80 Other acute sinusitis (principal); B34.9 Viral infection, unspecified; B97.89 Other viral agents as the cause of diseases classified elsewhere; R09.82 Postnasal drip; R05 Cough; J45.909 Unspecified asthma, uncomplicated; Z79.899 Other long term (current) drug therapy
CPT/HCPCS: 99212; G0463

== ENCOUNTER 2019-07-07 14:57 | Emergency (ER) | payer OTHER ==
[2019-07-07 15:50] VITALS: BP 119/54
--- NOTE | 2019-07-07 15:59 | UC ---
Throat Pain/Nasal Alexander HPI - HPI Summary HPI Summary: Nurse's notes:Was seen here 07/01/19 and tx for sinusitis w/ rx zpak and flonase. Finished abx on . Productive cough, sore throat and post-nasal drip x11 days. Sinus pain/pressure resolved after abx finished but symptoms returned last nigt. No fever. Taking ibuprofen prn and using albuterol inhaler/ neb. The patient states that the sinus symptoms tendons are loosening up because of the Flonase. She continues to have postnasal drainage and a cough. - History of Current Complaint Chief Complaint: UCRespiratory Stated Complaint: SORE THROAT/COUGH/HEADACHE/CONGESTION Time Seen by Provider: 07/07/19 15:52 Hx Obtained From: Patient Hx Last Menstrual Period: IUD ?: No Onset/Duration: Gradual Onset Severity: Mild Pain Intensity: 4 Cough: Productive - Occasional productive cough. Associated Signs & Symptoms: Positive: Sinus Discomfort, Nasal Discharge - Allergies/Home Medications Allergies/Adverse Reactions: Allergies Allergy/AdvReac Type Severity Reaction Status Date / Time Sulfa (Sulfonamide Allergy Rash Verified 07/07/19 15:44 Antibiotics) PMH/Surg Hx/FS Hx/Imm Hx Previously Healthy: Yes Respiratory History: Asthma - Surgical History Surgical History: Yes Surgery Procedure, Year, and Place: t&a, Appendectomy 12/30/13. - Family History Known Family History: Positive: None, Other - anemia, Non-Contributory Negative: Cardiac Disease - Social History Occupation: Employed Full-time Alcohol Use: Occasionally Substance Use Type: None Substance Use Comment - Amount & Last Used: occasionally Smoking Status (MU): Never Smoked Tobacco Household Exposure Type: Cigarettes - Immunization History Most Recent Influenza Vaccination: none Most Recent Tetanus Shot: UTD Most Recent Pneumonia Vaccination: none Vaccination Up to Date: Yes Review of Systems All Other Systems Reviewed And Are Negative: Yes ENT: Positive: Nasal Discharge, Sinus Congestion, Sinus Pain/Tenderness Respiratory: Positive: Cough - Occasionally productive cough. Is Patient Immunocompromised?: No Physical Exam Triage Information Reviewed: Yes Appearance: Well-Appearing, No Pain Distress, Well-Nourished Vital Signs: Initial Vital Signs Temp 98.9 F 07/07/19 15:46 Pulse 88 07/07/19 15:46 Resp 16 07/07/19 15:46 BP 119/54 07/07/19 15:46 Pulse Ox 100 07/07/19 15:46 Vital Signs Reviewed: Yes Eyes: Positive: Conjunctiva Clear ENT: Positive: Hearing grossly normal, Pharynx normal - Clear postnasal drainage., Nasal congestion, Nasal drainage - Clear nasal coryza., TMs normal, Sinus tenderness - Tender over the maxillary and frontal sinuses bilaterally., Uvula midline Neck: Positive: Supple, Nontender, No Lymphadenopathy Respiratory: Positive: No respiratory distress, No accessory muscle use, Wheezing - Very minimal expiratory wheeze anteriorly, no distress. Good air movement throughout. Cardiovascular: Positive: RRR, No Murmur, Pulses Normal, Brisk Capillary Refill Musculoskeletal Exam: Normal Neurological Exam: Normal Psychological Exam: Normal Skin Exam: Normal Throat Pain/Nasal Course/Dx - Course Course Of Treatment: The patient is comfortable here. I think that she is improving and the Flonase is working to loosen the head congestion. Her albuterol inhaler was almost out and she didn't think it was working correctly therefore I gave her refill for that. I also gave her prescription for benzonatate for the cough however advised to the postnasal drainage may continue for a few weeks but it should improve every day. I am going to put her on a tapering dose of prednisone for the residual bronchitis she seems to have. I do not feel at this point she needs another antibiotic. She is to follow-up with her primary care provider if she has any worsening symptoms or she develops fever. Patient is agreeable to this plan of action. - Differential Dx/Diagnosis Provider Diagnosis: Bronchitis Discharge ED - Sign-Out/Discharge Documenting (check all that apply): Patient Departure All imaging exams completed and their final reports reviewed: No Studies - Discharge Plan Condition: Good Disposition: HOME Prescriptions: Albuterol HFA INHALER* [Ventolin HFA Inhaler*] 2 puff INH Q4H PRN 5 Days #1 mdi PRN Reason: Wheezing Benzonatate CAP* [Tessalon 100 MG CAP*] 100 mg PO TID PRN 7 Days #21 cap PRN Reason: Cough predniSONE TAB* [Deltasone 10 MG TAB*] 10 mg PO DAILY 12 Days #30 tab Patient Education Materials: Acute Bronchitis (ED) Referrals: Indu Schneider MD [Primary Care Provider] - Additional Instructions: Increase fluids, use her albuterol inhaler 2 puffs every 4-6 hours as needed for wheezing or tight cough. Take the prednisone with food. Continue your Flonase 2 sprays in each nostril daily. Definite follow-up with your primary care provider next week if no improvement or if you start running a fever. - Billing Disposition and Condition Condition: GOOD Disposition: Home
== END 2019-07-07 16:08 | disposition home or self-care (01) ==
LOC: UCCORT 14:57
DX: J45.909 Unspecified asthma, uncomplicated (principal); Z88.2 Allergy status to sulfonamides
CPT/HCPCS: 99212; G0463

== ENCOUNTER 2022-11-15 20:17 | Inpatient (IN) ==
[2022-11-15] MEDS ORDERED: Buffered Lidocaine 1% SYRIN 1 ml INTRADERM ONE ×2 (20:50→23:53)
[2022-11-15] MEDS ORDERED: Meperidine 50 mg/ml SYRINGE 1 ml IM ONE (21:27)
[2022-11-15] MEDS ORDERED: Promethazine INJ(RESTRICTED) 25 MG/ML 1 ml VIAL IM ONE (21:30)
[2022-11-15] MEDS ORDERED: Lactated Ringers 1000 ml BAG 1,000 ML IV SCH (23:45)
[2022-11-15 23:54] LABS: Hematocrit 34 % (35-47); Hemoglobin 11.4 g/dL (12.0-16.0); Mean Corpuscular HGB Conc 34 g/dL (31-36); Mean Corpuscular Hemoglobin 30 pg (27-31); Mean Corpuscular Volume 89 fL (80-97); Mean Platelet Volume 7.4 fL (7.4-10.4); Platelet Count 336 10^3/uL (150-450); Red Blood Count 3.81 10^6 /uL (3.70-4.87); Red Cell Distribution Width 13 % (10-15); White Blood Count 21.1 10^3/uL (3.5-10.8)
[2022-11-15] MEDS ORDERED: Lidocaine 1.5% EPI 1:200,000 30 ML SDV ONE (23:57)
[2022-11-15] MEDS ORDERED: OBEPIDURAL (200 ML) 200 ML EPIDURAL ONE (23:57)
[2022-11-16] MEDS ORDERED: Ondansetron 4 mg VIAL 2 MG/ML 2 ml VIAL IV PRN (00:02)
[2022-11-16] MEDS: Lactated Ringers 1000 ml BAG 1,000 ML IV ONE ×2 (00:04→00:22)
[2022-11-16] MEDS ORDERED: Ropivacaine (OR use only) 2 MG/ML 10 ML ONE ×2 (00:25)
[2022-11-16] MEDS ORDERED: Bupivacaine 0.25% SDV PF 10 ML VIAL INJ ONE (00:27)
[2022-11-16] MEDS ORDERED: Phenylephrine 40 mcg/mL 10mL (400mcg) SYRINGE IV PUSH PRN ×2 (00:51)
[2022-11-16] MEDS ORDERED: Sodium Citrate/Citric Acid LIQ 15 ML UDC PO PRN (00:51)
[2022-11-16] MEDS ORDERED: OBEPIDURAL (200 ML) 200 ML EPIDURAL SCH (01:00)
[2022-11-16 01:33] LABS: Urine Appearance Clear; Urine Bilirubin Negative (Negative); Urine Blood 2+ (Negative); Urine Color Straw; Urine Glucose Negative (Negative); Urine Ketones Negative (Negative); Urine Nitrite Negative (Negative); Urine Protein Negative (Negative); Urine Specific Gravity 1.002 (1.002-1.030); Urine Urobilinogen Negative (Negative)
[2022-11-16 01:37] LABS: Urine Bacteria 1+ (Absent); Urine Red Blood Cell Trace(0-2/hpf) (Absent); Urine Squamous Epithelial Cell Present (Absent); Urine White Blood Cell Absent (Absent)
[2022-11-16 01:48] LABS: Urine Benzodiazepine Screen None Detected (None Detect); Urine Cannabinoids Screen Presumptive Positive (None Detect); Urine Opiates Screen None Detected (None Detect)
[2022-11-16 02:19] LABS: ABS Basophils 0.1 10^3/ul (0-0.2); ABS Eosinophils 0.3 10^3/ul (0-0.6); ABS Lymphocytes 3.9 10^3/ul (1.0-4.8); ABS Monocytes 1.7 10^3/ul (0-0.8); Eosinophil % 1.4 %; Lymphocyte % 18.5 %
[2022-11-16 02:25] LABS: RBC Morphology Normal (Normal)
[2022-11-16] MEDS ORDERED: Oxytocin in LR 20,000 MILLI.UNIT/1,000 ML BAG IV ONE (05:49)
[2022-11-16] MEDS ORDERED: Witch Hazel PAD JAR TOPICAL PRN (07:45)
[2022-11-16] MEDS ORDERED: Dibucaine 1% OINT 28.35 GM TUBE PR PRN (07:45)
[2022-11-16] MEDS ORDERED: Glycerin ADULT 2.4 gm SUPP PR PRN (07:45)
[2022-11-16] MEDS ORDERED: Lactated Ringers 1000 ml BAG 1,000 ML IV SCH (08:00)
[2022-11-16] MEDS ORDERED: Lidocaine 1% VIAL 10 MG/ML VIAL 30 ML ONE (10:25)
[2022-11-17 06:59] LABS: ABS Basophils 0.1 10^3/ul (0-0.2); ABS Eosinophils 0.3 10^3/ul (0-0.6); ABS Lymphocytes 3.3 10^3/ul (1.0-4.8); ABS Monocytes 1.4 10^3/ul (0-0.8); ABS Neutrophils 9.9 10^3/ul (1.5-7.7); Hematocrit 32 % (35-47); Hemoglobin 10.5 g/dL (12.0-16.0); Lymphocyte % 21.9 %; Mean Corpuscular HGB Conc 33 g/dL (31-36); Mean Corpuscular Hemoglobin 30 pg (27-31); Mean Corpuscular Volume 91 fL (80-97); Mean Platelet Volume 7.6 fL (7.4-10.4); Platelet Count 271 10^3/uL (150-450); Red Blood Count 3.49 10^6 /uL (3.70-4.87); Red Cell Distribution Width 13 % (10-15); White Blood Count 14.9 10^3/uL (3.5-10.8)
[2022-11-18 09:22] VITALS: BP 123/84
== END 2022-11-18 12:35 | disposition home or self-care (01) | DRG 807 ==
LOC: MCHOBOUT 20:17 → MCHOB 23:44
PROVIDERS: ADMIT Advanced Practice Midwife; ATTEND Advanced Practice Midwife